=== PATIENT | male | born 1945 | race Caucasian/White ===

== ENCOUNTER 2017-10-14 15:04 | Emergency (ER) | payer MEDICARE, SELFPAY ==
[2017-10-14 15:11] VITALS: BP 143/56; PULSE 69; PULSE 70; RESP 20; TEMP 36.4; O2SAT 94; O2SAT 95; BMI 23.4
--- NOTE | 2017-10-14 15:27 | EKG12_ITS ---
Test Reason : Blood Pressure : / mmHG Vent. Rate : 071 BPM Atrial Rate : 071 BPM P-R Int : 140 ms QRS Dur : 102 ms QT Int : 418 ms P-R-T Axes : 034 070 063 degrees QTc Int : 454 ms Sinus rhythm with occasional Premature ventricular complexes Voltage criteria for left ventricular hypertrophy Abnormal ECG Confirmed by AUBRIE SETH, KRISTIAN ([id number]), editor dictionary CHAY STRAUSS ([id number]) on 10/16/2017 1:13:54 PM Referred By: JAROD Confirmed By:KRISTIAN ALFRED MD
--- NOTE | 2017-10-14 15:29 | RAD_ITS ---
STUDY: X-RAY CHEST REASON FOR EXAM: Male, 71 years old. Dizziness and short of breath TECHNIQUE: Single AP portable view of the chest. COMPARISON: None. FINDINGS: There is hyperinflation of the lungs consistent with chronic obstructive lung disease (COPD). There is a 5 cm spiculated mass in the right upper lobe consistent with neoplasm. CT with contrast is recommended. No no other pulmonary opacities. No effusions. There is no demonstrated pleural abnormality. Normal size heart. Normal mediastinum and alan. Normal visualized pulmonary arteries. Normal visualized aortic arch and descending thoracic aorta. Normal visualized thoracic spine. Normal visualized ribs, clavicles, and shoulders. There is no demonstrated abnormality of the visualized soft tissue structures of the upper abdomen. RAD/Chest 1 View (Portable) IMPRESSION: There is a 5 cm spiculated mass in the right upper lobe consistent with neoplasm. CT with contrast is recommended. Electronically Signed: Norm Monzon MD at 16:26 EDT , Service support ,
--- NOTE | 2017-10-14 15:37 | NURSING ---
NO LW OR POA
--- NOTE | 2017-10-14 15:44 | ED.VISSUMM ---
- ER Visit Summary Date of Service: 10/14/17 Chief Complaint: Near syncope History of Present Illness: The patient is a 71 M who presents after near syncopal episode. He is a daily drinker. He does admit to drinking couple of beers today. He was standing outside at a hot grill and it is also hot outside today. He began to feel lightheaded and dizzy. He felt he needed to sit down. He sat down at the picnic table and the next thing he knew there were multiple people surrounding him. He states that he never actually lost consciousness. He remembers the event and fall. EMS reports that he had another near syncopal episode while in the ambulance. He denies any associated symptoms such as fevers chest pain shortness of breath vomiting diarrhea. No recent illness. He denies any pain. Physical Examination: Afebrile vitals unremarkable Moist mucous membranes Heart regular rate and rhythm Lungs are clear Abdomen soft and nontender 2+ symmetric radial pulses Extremities nontender without edema Alert no focal neurological deficits Test Results: EKG shows sinus rhythm at a rate of 71 with a single PVC. CBC BMP normal. Troponin negative. Orthostatic vital signs negative. Chest x-ray showed a 5 cm right upper lobe spiculated mass. CTA of the chest was obtained. No pulmonary embolism. There is a 5.1 cm malignant mass in the right upper right hilar lymphadenopathy concerning for bronchogenic carcinoma. Emergency Department Course and Treatment: I do believe the patient's near syncope was likely related to heat exhaustion. He states that this began while standing next to a very hot grill. He states currently he is completely asymptomatic. This orthostatic vital signs and labs were all normal. I explained to the patient the findings on CT chest that are most consistent with malignancy. I spoke to , pulmonology and patient will follow-up as an outpatient. He understands to return for new or worsening symptoms and was instructed on specific signs and symptoms to monitor for. Patient discharged home in good condition. Treatment Plan: [] Disposition: Discharge Impression: Near syncope Heat exhaustion Lung mass This note was generated with [employer] dictation software. It may contain incorrect words, spelling, and punctuation that were not noted in review of the chart prior to signing ED Disposition - Plan for ED Patient: Chief Complaint: Syncope Referrals: Maryse Lima NP-C [Primary Care Provider] -
[2017-10-14 15:48] LABS: Absolute Lymphocyte Count 1.34 X10^3/ul (0.83-4.51); Basophil# 0.04 X10^3/uL; Basophil% 0.5 % (0-1); Eosinophils% 5.2 % (0-5); Hematocrit 45.5 % (40-54); Hemoglobin 15.5 g/dl (13.0-16.5); Lymphocyte # 1.34 X10^3/ul (4.0); Lymphocyte % 17.5 % (19-41); Mean Corp Hgb Conc 34.1 g/gl (32-36); Mean Corpuscular Hgb 31.7 pg (27.0-32.0); Mean Platelet Vol. 9.4 fl (6.2-12.0); Monocyte# 0.85 X10^3/uL; Monocyte% 11.1 % (0-10); Neutrophil # 5.01 X10^3/uL (2.7-7.7); Neutrophil % 65.6 % (47-70); Platelet Count 193 K/mm3 (150-450); RBC Distribution Width CV 14.8 % (11.6-14.6); RBC Distribution Width SD 49.3 fl (35.1-43.9); Red Blood Count 4.89 M/mm3 (4.6-6.2); White Blood Count 7.7 K/mm3 (4.4-11.0)
[2017-10-14 15:49] LABS: POSITIVE COUNT NO; POSITIVE DIFFERENTIAL NO; POSITIVE MORPHOLOGY NO
[2017-10-14 15:57] LABS: Anion Gap 6 (5-15); BUN 8 mg/dL (7-18); Calcium,Total 9.2 mg/dL (8.5-10.1); Chloride 103 mmol/L (98-107); Creatinine, Serum 1.15 mg/dL (0.70-1.30); EST Glomerular Filtration Rate 67 mL/min (>60); Est Glom Filt Rate - Afr Amer 80 mL/min (>60); Estimated Creatinine Clearance 51.25 ml/min; Glucose 118 mg/dL (74-106); Potassium 3.6 mmol/L (3.5-5.1); Sodium Level 137 mmol/L (136-145)
[2017-10-14 16:06] VITALS: BP 146/58; BP 151/71; BP 153/72; PULSE 77; PULSE 81; PULSE 82
[2017-10-14] MEDS: 0.9% Normal Saline 1,000 ML 1000 ML IV (16:07)
--- NOTE | 2017-10-14 16:33 | CT_ITS ---
STUDY: CTA CHEST REASON FOR EXAM: Male, 71 years old. Near syncope. Previous vascular surgery. RADIATION DOSAGE (If Supplied By Facility): CTDIvol = ( 10.61 ) mGy, DLP = ( 533.24 ) mGycm TECHNIQUE: The examination was performed with the intravenous administration of 75 ml of Isovue 370 contrast material. Post-processing of the angiographic images was performed, with multiplanar reformation and 3D reconstruction. Individualized dose optimization techniques were used for this CT. COMPARISON: None. FINDINGS: This examination confirms a malignant appearing mass in the right upper lobe, abutting the upper aspect of the right major fissure and extensively involving the lateral pleural. Greatest dimension is approximately 5.1 cm. This is very likely bronchogenic carcinoma. Biopsy is recommended. There may be some associated right hilar adenopathy. There is underlying COPD with hyperexpansion of the lungs and some diffuse interstitial thickening. No other focal pulmonary opacities. No effusions. Normal enhancement of the main pulmonary artery and right and left pulmonary arteries. Normal enhancement of the bilateral peripheral pulmonary arteries. There is no demonstrated pulmonary embolism. There is atherosclerotic calcification of the aortic arch with tortuosity. There is no demonstrated aortic dissection. Normal heart and pericardium. There are calcifications of the coronary arteries. Normal mediastinum. Normal hilar regions. Normal visualized trachea and bronchi. Normal chest wall structures. A vascular graft is seen through the subcutaneous tissues of the right chest wall, extending from the right thoracic inlet and subclavian artery as far as the lowermost image seen. There are degenerative changes of thoracic spine. Normal gross acute abnormality in the visualized upper abdomen. CT/CTA Chest W/WO Contrast IMPRESSION: 5.1 cm malignant mass of the right upper lobe. Biopsy recommended. Possible right hilar adenopathy. COPD. No evidence for PE. Electronically Signed: Norm Monzon MD at 17:40 EDT , Service support ,
[2017-10-14 16:41] VITALS: BP 156/61; PULSE 85; RESP 17; O2SAT 96
--- NOTE | 2017-10-14 18:07 | ED.DEP ---
ED Disposition - Plan for ED Patient: Chief Complaint: Syncope Instructions: ED Near Syncope Unkn, ED Exhaustion Heat, ED Nodule Solitary Pulmonary Referrals: Maryse Lima, JESUS-C [Primary Care Provider] - Kaveh Brown DO [STAFF PHYSICIAN] -
[2017-10-14 18:26] VITALS: BP 154/68; PULSE 89; RESP 17; O2SAT 95
== END 2017-10-14 18:27 | disposition home or self-care (01) ==
PROVIDERS: Emergency Provider Emergency Medicine; Family Provider Nurse Practitioner Family; PCP Nurse Practitioner Family
DX: R55 Syncope and collapse (principal); T67.5XXA Heat exhaustion, unspecified, initial encounter; X30.XXXA Exposure to excessive natural heat, initial encounter; Y93.9 Activity, unspecified; Y92.9 Unspecified place or not applicable; R91.8 Other nonspecific abnormal finding of lung field; I49.3 Ventricular premature depolarization; I10 Essential (primary) hypertension; D45 Polycythemia vera; Z86.718 Personal history of other venous thrombosis and embolism; Z87.19 Personal history of other diseases of the digestive system; F10.99 Alcohol use, unspecified with unspecified alcohol-induced disorder; Z79.82 Long term (current) use of aspirin; Z79.899 Other long term (current) drug therapy; Z72.0 Tobacco use
CPT/HCPCS: 71045; 71275; 80048; 80320; 84484; 85025; 93005; 96360; 99285; Q9967; A4216; G0480

== ENCOUNTER → 2017-10-31 07:54 | Outpatient (CLI) | payer MEDICARE, OTHER, SELFPAY ==
--- NOTE | 2017-10-31 15:12 | PFTCOMP ---
COMPLETE PULMONARY FUNCTION TEST INTERPRETATION Brief HPI: Patient is a 71 year old male, currently under the care of myself, who presents to [facility] for complete pulmonary function tests secondary to diagnosis of dyspnea. Respiratory therapist reports good effort and reproducible results. Interpretation: Forced expiration spirometry shows a moderately-severe large airways obstructive ventilatory defect with an FEV1 of 55% predicted. There is no significant bronchodilator response by ATS criteria. Spirograms are of good quality and plateau slowly, indicating slowly emptying areas of the lungs. The respiratory flow volume loop shows decreased expiratory flow rates at all lung volumes consistent with airway obstruction. Lung volumes by body plethysmography show a normal total lung capacity at 6.18 L, 117% predicted. FRC and RV are elevated out of proportion. Lung volume measurements are consistent with hyperinflation and air-trapping. Diffusion capacity by carbon monoxide is decreased at 61% predicted. The airway resistance is elevated. No previous pulmonary function tests were available for review. Impression: Irreversible moderately severe large airways obstructive ventilatory defect with a symmetric reduction in diffusing capacity and resulting in air trapping with hyperinflation. These findings are consistent with the diagnosis of COPD.
--- NOTE | 2017-10-31 15:15 | PFTCOMP_ITS ---
COMPLETE PULMONARY FUNCTION TEST INTERPRETATION Brief HPI: Patient is a 71 year old male, currently under the care of myself, who presents to [facility] for complete pulmonary function tests secondary to diagnosis of dyspnea. Respiratory therapist reports good effort and reproducible results. Interpretation: Forced expiration spirometry shows a moderately-severe large airways obstructive ventilatory defect with an FEV1 of 55% predicted. There is no significant bronchodilator response by ATS criteria. Spirograms are of good quality and plateau slowly, indicating slowly emptying areas of the lungs. The respiratory flow volume loop shows decreased expiratory flow rates at all lung volumes consistent with airway obstruction. Lung volumes by body plethysmography show a normal total lung capacity at 6.18 L , 117% predicted. FRC and RV are elevated out of proportion. Lung volume measurements are consistent with hyperinflation and air-trapping. Diffusion capacity by carbon monoxide is decreased at 61% predicted. The airway resistance is elevated. No previous pulmonary function tests were available for review. Impression: Irreversible moderately severe large airways obstructive ventilatory defect with a symmetric reduction in diffusing capacity and resulting in air trapping with hyperinflation. These findings are consistent with the diagnosis of COPD.
== END ==
PROVIDERS: Visit Provider Internal Medicine Critical Care Medicine
DX: R06.00 Dyspnea, unspecified (principal)
CPT/HCPCS: 94060; 94726; 94729

== ENCOUNTER → 2017-11-02 08:52 | Outpatient (CLI) | payer MEDICARE, OTHER, SELFPAY ==
[2017-11-02 09:33] VITALS: PULSE 104; PULSE 105; PULSE 106; PULSE 107; PULSE 92; PULSE 95; PULSE 97; O2SAT 92; O2SAT 93; O2SAT 95; O2SAT 96; O2SAT 97; O2SAT 98
--- NOTE | 2017-11-02 11:14 | PCM.PSN.6M ---
PSN 6 Minute Walk Test - 6 Minute Walk Test 6 Minute Walk Test: 6 Minute Walk Test PSN:6-Minute Walk Test Start: 11/02/17 09:32 Freq: Status: Active Protocol: RESP.6MINW Document 11/02/17 09:33 [facility] (Rec: 11/02/17 09:55 [facility] [id number]) 6 Minute Walk Test Date Performed 11/02/17 Time Performed 09:00 Height 5 ft 5 in Weight: 58.967 kg Weight in Pounds 130.[address]: Tony Goodson FIO2 (% Oxygen) 21 Assistive device used: None Pre-test Oxygen Delivery Method Room Air Pulse Ox (%) 98 Pulse Rate (60-100 beats/min) 95 Dyspnea Eron Scale (0-10) 0 1st minute Oxygen Delivery Method Room Air Pulse Ox (%) 96 Pulse Rate (60-100 beats/min) 95 Dyspnea Eron Scale (0-10) 0 2nd minute Oxygen Delivery Method Room Air Pulse Ox (%) 96 Pulse Rate (60-100 beats/min) 97 Dyspnea Eron Scale (0-10) 0 3rd minute Oxygen Delivery Method Room Air Pulse Ox (%) 95 Pulse Rate (60-100 beats/min) 105 H Dyspnea Eron Scale (0-10) 0 4th minute Oxygen Delivery Method Room Air Pulse Ox (%) 96 Pulse Rate (60-100 beats/min) 104 H Dyspnea Eron Scale (0-10) 0 5th minute Oxygen Delivery Method Room Air Pulse Ox (%) 93 Pulse Rate (60-100 beats/min) 107 H Dyspnea Eron Scale (0-10) 0 6th minute Oxygen Delivery Method Room Air Pulse Ox (%) 92 Pulse Rate (60-100 beats/min) 106 H Dyspnea Eron Scale (0-10) 0 Post-test Oxygen Delivery Method Room Air Pulse Ox (%) 97 Pulse Rate (60-100 beats/min) 92 Dyspnea Eron Scale (0-10) 0 Full Laps Walked 16 Partial Lap, Number of Tiles Walked 132 Total Distance Walked (ft) 1076 - Interpretation Interpretation: Patient was able to ambulate 1076 feet over the course of 6 minutes on room air with no assistive devices or breaks. The patient did experience significant desaturation from 90% at baseline to as low as 92% in the 6 minute. Some tachycardia was noted with a peak heart rate of 106 bpm. These findings are consistent with a respiratory limitation exercise tolerance. - Recommendations Recommendations: No supplemental oxygen is indicated at this time.
== END ==
PROVIDERS: Visit Provider Internal Medicine Critical Care Medicine
DX: R06.00 Dyspnea, unspecified (principal)
CPT/HCPCS: 94618

== ENCOUNTER → 2017-11-09 08:51 | Outpatient (CLI) | payer MEDICARE, OTHER, SELFPAY ==
[2017-11-09] VITALS (10 sets, daily range): BP systolic 105–223; BP diastolic 23–75; PULSE 76–88; RESP 17–22; TEMP 36.9; O2SAT 97–99; BMI 21.6
--- NOTE | 2017-11-09 | IMM_PTH ---
PATIENT: JENARO RIVERO Jr. LOC: CT U#:[id number] AGE/SX: 79/M ROOM: RE11/09/[address]: Dr. Tony Goodson MD : 1945 BED: DIS: SPEC #: [id number] RECD: 11/12/17 14:17 STATUS: MARTIN REQ #: [id number] PRINCESS: 11/09/17 00:[address]: Tony Goodson DEPT: IMMUNOHISTOCHEMISTRY RECD BY: Louise Feliciano ENTERED: 11/12/17 14:19 SP TYPE: IMMUNO OTHR DR: Maryse Lima, CUT LACE MACHINE OPERATOR-C [facility] Tissues: Lung, NOS Procedures: RCC (add) NAPSIN A (add) CK20 (add) CK5-6 (add) CK8 (add) HEP PAR (add) PSA (add) TTF1 (add) P40 (add) CK7 (initial) PHYSICIAN & INSTITUTION [place] [id number] SPECIMEN INFORMATION: Tissue Source: Right lung mass Clinical Info: Right lung mass Specimen Number: [id number] CPT code: 74001, 95652 x9 METHODOLOGY: Deparaffinized sections of prefer/formalin-fixed tissue or PAP/DQ stained slides are incubated with monoclonal/polyclonal antibodies/oligonucleotide probes. Localization is made via biotin free immunoperoxidase method. Appropriate controls are performed and reacted as expected. Results on target cell population are indicated in the following table: RESULTS: ANTIBODY / CLONE RESULT CK7 (OV-TL12/30) positive CK8 (32zhbnS65) positive CK20 (KS20.8) negative TTF-1 (8G7G3/1) positive, focal and weak Napsin A (Rabbit Polyclonal) negative HepPar (OCh1E5) negative RCC (PN-15) negative PSA (ER-PR8) negative CK5-6 (D5 & 1684) positive, weak P40 (BC28) negative These tests were developed and their performance characteristics determined by [facility]. They may not have been cleared or approved by the U.S. Food and Drug Administration. The FDA has determined that such clearance or approval is not necessary. INTERPRETATION: Right lung mass, CT-guided biopsy: Non-small cell carcinoma, favor poorly differentiated adenocarcinoma. SJ:ariana 11/13/17 Case has been reviewed in consultation with Dr. Moore who concurs with the above diagnosis. IDC:AM
--- NOTE | 2017-11-09 | ASPIGT_PTH ---
PATIENT: JENARO RIVERO Jr. LOC: AR U#:[id number] AGE/SX: 79/M ROOM: RE11/09/[address]: Dr. Tony Goodson MD : 1945 BED: DIS: SPEC #: [id number] RECD: 11/09/17 11:00 STATUS: MARTIN LALO #: [id number] PRINCESS: 11/09/17 00:[address]: Tony Goodson DEPT: SURGICAL PATHOLOGY RECD BY: Genaro Daugherty ENTERED: 11/09/17 11:41 SP TYPE: ASP RAD OTHR DR: Maryse Lima, WIRE INSULATOR-C [facility] Tissues: Right lung, NOS Procedures: FNA Specimen Adequacy Pap Stain (control) Special Stain Group II Surgery Specimen Level IV Diff Quik Stain (control) Imprint (control) HEADER OPERATION: CT guided right lung biopsy PRE-OP DIAGNOSIS: Lung mass TISSUE SUBMITTED: Right lung mass 20g MICROSCOPIC DIAGNOSIS Right lung mass, CT-guided core biopsy: Non-small cell carcinoma, favor poorly differentiated adenocarcinoma. SJ:ariana 11/12/17 COMMENT The specimen is evaluated at the time of CT by Dr. Moore. Immediate Evaluation (crush prep) = Positive for malignant cells, non-small cell carcinoma. Immunohistochemistry ([id number]) supports the above diagnosis. Molecular studies on the tumor can be performed, please notify the laboratory, if is needed. Most of the fragments of the core biopsy consist of fibroconnective tissue with anthracotic pigment. One fragment shows the presence of tumor. Skeletal muscle is also noted in the specimen and negative for involvement by carcinoma. Case has been reviewed in consultation with Dr. Moore who concurs with the above diagnosis. IDC:AM MICROSCOPIC DESCRIPTION Slides are reviewed. GROSS DESCRIPTION Received in fixative is one container labeled with the patient's name and designated right lung. The specimen consists of multiple irregular and elongated fragments of light guo soft tissue that in aggregate measure 1.7 x 0.2 x <0.1 cm. The specimen is totally submitted in one cassette. Five smears were obtained at the time of biopsy, two stained DQ and three stained pap. / AM:ariana 11/09/17 TC:0 CPT: 66811, 51835
[2017-11-09 10:04] LABS: Partial Thromboplast Time 28.3 Seconds (24.1-36.2)
== END ==
PROVIDERS: Visit Provider Internal Medicine Critical Care Medicine
DX: C34.91 Malignant neoplasm of unspecified part of right bronchus or lung (principal); J44.9 Chronic obstructive pulmonary disease, unspecified; D75.1 Secondary polycythemia; I48.91 Unspecified atrial fibrillation; I51.9 Heart disease, unspecified; I10 Essential (primary) hypertension; K57.90 Diverticulosis of intestine, part unspecified, without perforation or abscess without bleeding; I73.9 Peripheral vascular disease, unspecified; Z87.19 Personal history of other diseases of the digestive system; Z86.718 Personal history of other venous thrombosis and embolism; Z98.890 Other specified postprocedural states; Z79.82 Long term (current) use of aspirin; Z79.899 Other long term (current) drug therapy; F12.90 Cannabis use, unspecified, uncomplicated; Z87.891 Personal history of nicotine dependence
CPT/HCPCS: 32405; 36415; 71046; 77012; 85610; 85730; 88172; 88305; 88307; 88313; 88341; 88342; 99156; J7040; A4216

== ENCOUNTER → 2017-12-07 07:10 | Outpatient (CLI) | payer MEDICARE, SELFPAY ==
--- NOTE | 2017-12-07 07:16 | MRI_ITS ---
STUDY: MRI BRAIN WITH AND WITHOUT CONTRAST REASON FOR EXAM: Male, 72 years old. New lung CA diagnosis, no complaints from patient TECHNIQUE: Standardized multiplanar fat and water weighted pulse sequences were obtained. 7 ml of Gadavist contrast material was administered intravenously for the contrast portion of the examination. COMPARISON: CT July 24, 2008 report only FINDINGS: There is a 4 mm round enhancing focus in the right centrum semiovale which could represent a metastasis. There is no mass effect or midline shift. There are multiple white matter hyperintensities, distributed throughout the deep white matter tracts of the cerebral hemispheres, consistent with moderate chronic white matter ischemic changes. Normal bilateral basal ganglia. Normal thalami. There is no extra-axial fluid accumulation. Normal flow voids within the major intracranial circulation suggesting patency by spin echo criteria. Normal sella turcica, pituitary gland, infundibular stalk, optic chiasm and hypothalamus. Normal tectal plate and pineal gland. Normal midbrain, esme and medulla. Normal cerebellum. Normal basal cisterns. Normal bilateral temporal bones. Normal bilateral internal auditory canals. No demonstrated orbital abnormality, within the constraints of a routine brain study. There is minimal mucosal thickening of the frontal and ethmoid sinuses.. Normal calvarium and skull base. Normal visualized soft tissue structures. Normal visualized upper cervical spine. MRI/Brain W/WO Contrast IMPRESSION: There is a 4 mm enhancing focus in the right centrum semiovale which could represent a metastasis. There is moderate small vessel ischemic white matter disease. Electronically Signed: Suellen Mi MD at 15:10 EDT , Service support ,
[2017-12-07 07:42] LABS: CREATININE FINGERSTICK 1.1 mg/dL (0.70-1.30); EGFR FINGERSTICK > 60.0000 mL/min (>60)
== END ==
PROVIDERS: Visit Provider Nurse Practitioner Acute Care
DX: C34.91 Malignant neoplasm of unspecified part of right bronchus or lung (principal)
CPT/HCPCS: 70553; A9585

== ENCOUNTER → 2017-12-10 10:17 | Outpatient (CLI) | payer MEDICARE, SELFPAY ==
--- NOTE | 2017-12-10 07:53 | PET_ITS ---
EXAMINATION: FDG PET CT INDICATIONS: A 72-year-old male with reported history of carcinoma of the lung presenting for initial staging examination. COMPARISON EXAMINATION: CT of the chest report dated 10/14/17. INDEX LESION SIZE SUV INTERPRETATION Right upper hemithorax, right upper lobe 38.6 mm x 40.9 mm (frame 185) 13.7 Fulfills quantitative criteria for viable neoplasm NON-INDEX LESION SIZE SUV INTERPRETATION Right thoracic perihilum, right infrahilar region 2.0 (max) Quantitative criteria for viable neoplasm are not fulfilled Left lower pelvic mesentery contiguous to intestinal tract oral contrast 26.7 mm (frame 80) 2.9 May be further investigated with CT of the abdomen and pelvis is soft tissue mass formation is suspected TECHNIQUE: Following the intravenous administration of 15.74 mCi of F-18 deoxyglucose via the left antecubital fossa, multiplanar image acquisitions of the neck, chest, abdomen and pelvis to level of mid thigh, obtained at one hour post radiopharmaceutical administration contemporaneously interpreted with the current CT of the neck, chest, abdomen and pelvis to level of mid thigh, dated 12/10/[address] of the chest report dated 10/14/17 reveal: SERUM GLUCOSE LEVEL: 89 mg/dl. HEIGHT: 65 inches. WEIGHT: 130 lbs. FINDINGS: 1. An increase in glucose metabolism is defined in the right upper hemithorax pulmonary parenchyma, right upper lobe generating a calculated maximum standard uptake value of 13.7. The maximal axial diameter of the parenchymal density-mass on review of CT of the thorax dated 12/10/17 is 38.6 mm (transverse) x 30.9 mm (AP). 2. Mild increased glucose concentration is demonstrated in the right thoracic perihilum, infrahilar regions generating a calculated maximum standard uptake value of 2.0. 3. Normal physiologic distribution of the radiopharmaceutical is apparent in the hepatic (2.7) and splenic parenchyma, both renal units, bladder and visualized intestinal tract. There is uniform distribution of the radiopharmaceutical concentration defined in the visualized cerebellar hemispheres and cerebral cortical structures.? Diffuse intestinal tract activity is noted throughout all four quadrants of the abdominal-pelvic retroperitoneum, mesentery consistent with normal physiologic distribution of the radiopharmaceutical. An increase in glucose metabolism is defined in the left anterior pelvic wall localized to the subcutaneous fat generating a calculated maximum standard uptake value of 2.9. The maximal axial diameter of the corresponding soft tissue density on review of CT of the pelvis dated 12/10/17 is 26.7 mm (transverse). There is prominent glucose metabolism manifest in the descending thoracic aorta. Prominent glucose metabolism appears evident in the lower pelvis, which appears contiguous to intestinal tract with retained oral contrast material. Pertinent CT findings are as follows. CHEST: Atherosclerotic calcification is defined in the thoracic aorta without evidence of dilatation, aneurysm formation. Coronary arterial calcification is observed. Bilateral axillary soft tissue densities demonstrate no evidence of increased glucose metabolism. Mediastinal soft tissue is ametabolic. Emphysematous change is noted in the bilateral upper lung zones. There are no additional parenchymal densities-nodules noted in the right-left hemithorax demonstrating discernible, quantitatively significant enhanced glucose metabolism. ABDOMEN AND PELVIS: Atherosclerotic calcification is defined in the abdominal aorta without evidence of dilatation, aneurysm formation. Abdominal-pelvic arterial calcification is demonstrated. Cortical cyst formation is visualized in the left kidney with a maximal axial diameter of 31.7 mm (transverse). Calcifications are noted in the bilateral renal units. Dystrophic calcification appears evident within the prostate gland without evidence of quantitatively significant enhanced glucose metabolism. SKELETAL: Degenerative changes defined in the cervical, thoracic and lumbar spine demonstrate no evidence for glucose hypermetabolism. PET/PET/CT Tumor Base -Thigh Init IMPRESSION: 1. ABNORMAL EXAMINATION INDICATIVE OF MALIGNANT VIABLE NEOPLASM. 2. Increased glucose concentration defined in the right upper hemithorax pulmonary parenchyma, right upper lobe fulfills quantitative criteria for viable neoplasm. (Luis et al, Annals of Internal Medicine, 138:724, 2003). 3. Prominent intestinal tract distribution of radiopharmaceutical noted in the left lower pelvis contiguous to part to apparent retained oral contrast material likely represents a component of physiologic distribution of the radiopharmaceutical and potential reconstruction artifact. (Christa et al, Annal of Nuclear Medicine 19:101, 2005). If intraluminal soft tissue mass formation is a diagnostic consideration, correlation with CT of the abdomen and pelvis with intravenous is recommended. (Tony et al, Journal of Nuclear Medicine, 30:Y662, 2003). 4. Mild enhanced glucose concentration observed in the right thoracic perihilum and infrahilar regions does not fulfill quantitative criteria for viable neoplasm. 5. Facilitated FDG uptake demonstrated in the left anterior pelvic wall may represent activated leukocytes associated with a soft tissue inflammatory process. Clinical examination is recommended. 6. The increase in radiopharmaceutical concentration noted in the descending thoracic aorta is most consistent with activated leukocytes associated with atherosclerotic plaque formation. (Jaziel adamson al, Clinical Nuclear Medicine 29:93, 2004). Electronic Signature Rober Richardson D.O. Electronically Signed: Rober Richardson DO at 8:21 EDT Tel , Service support ,
== END ==
PROVIDERS: Visit Provider Nurse Practitioner Acute Care
DX: C34.11 Malignant neoplasm of upper lobe, right bronchus or lung (principal)
CPT/HCPCS: 78815; A9552

== ENCOUNTER 2018-01-08 09:29 | Day surgery (SDC) | payer MEDICARE, SELFPAY ==
[2017-12-17 13:58] VITALS: BMI 22.1
[2018-01-08] VITALS (10 sets, daily range): BP systolic 101–150; BP diastolic 39–63; PULSE 69–82; RESP 16–18; TEMP 36.2–36.7; O2SAT 93–98; BMI 22.4
[2018-01-08] MEDS: Cefazolin 2 GM in 0.9% Normal Saline 100 ML IV (12:27)
[2018-01-08] MEDS: Bupivacaine Mpf 0.5% 30 ML VIAL (12:38)
--- NOTE | 2018-01-08 12:59 | DCINST_ITS ---
Discharge Diet: No Restrictions - Pain medication may cause nausea. You should typically eat light foods as you take your pain medication. Discharge Activity: May Shower - with the bandage in place 1-2 days after surgery. DO NOT SHOWER WHEN YOUR PORT IS ACCESSED. Additional Activity Instructions:: May not drive, work with heavy equipment, or sign legal documents for [address] if you are no longer taking narcotic pain medications. You may drive when you are no longer taking pain medications. Additional Dressing/Incision Instructions:: Leave the bandage on for 2-3 days. When you remove the bandage, leave the steri-strips intact until they fall off. Allergies/Adverse Reactions: Allergies diphenhydramine HCl [From Benadryl] Allergy (Severe, Verified 01/07/18 13:08) Itching PATIENT STATES NOT SURE ABOUT ITCHING ONLY HAPPENED ONCE, NEVER HAD A PROBLEM WITH BENADRYL SINCE latex Allergy (Severe, Verified 01/07/18 13:08) Rash Medications to take at Discharge Lisinopril [Zestril] 20 mg PO DAILY 04/23/15 tiotropium 2.5 mcg-olodaterol 2.5 mcg/actuation mist for inhalation 2 puff INHALATION Q24H #4 g 11/30/17 Aspirin 325 mg PO DAILY@0800 12/17/17 Lidocaine/Prilocaine [Lidocaine-Prilocaine Cream] 30 gm TP DAILY PRN PRN 30 Days #1 cream..g. 12/31/17 Ondansetron HCl [Zofran] 4 mg PO Q8H PRN PRN 10 Days #30 tab 12/31/17 Oxycodone HCl/Acetaminophen [Percocet 5/325] 1 - 2 tab PO Q4H PRN PRN 5 Days #30 tab 01/08/18 The following prescriptions were given: Oxycodone HCl/Acetaminophen [Percocet 5/325] 1 - 2 tab PO Q4H PRN PRN 5 Days #30 tab PRN Reason: Pain Primary Care Physician: Camille Canela [Primary Care Provider] - Test Results: Test results from this visit will be discussed in further detail at your follow- up appointment, if applicable. Please Follow Up With: Jed Reynolds MD - [phone] When: Please plan to follow up in 7 days in the office.
--- NOTE | 2018-01-08 12:59 | RAD_ITS ---
STUDY: X-RAY CHEST REASON FOR EXAM: Male, 72 years old. Post line placement. TECHNIQUE: Single AP portable upright view of the chest. COMPARISON: AP upright inspiratory and expiratory chest x-rays November 09, 2017. FINDINGS: A new chemo port hub is seen overlying the lateral left apex, the catheter passing from the internal jugular vein to the cavoatrial junction. No pneumothorax. Masslike soft tissue density in the right upper lung zone is unchanged. There is mild subsegmental atelectasis in the right base. Nodular-like density projecting over the left apex correlates to exuberant calcification at the first costal cartilage junction. There is no demonstrated pleural abnormality. Normal size heart. Normal mediastinum and alan. Normal visualized pulmonary arteries. There is stable atherosclerotic calcification of the aortic arch. There are stable multilevel degenerative changes of the visualized thoracic spine. Normal visualized ribs, clavicles, and shoulders. Surgical clips again project in the right infraclavicular tissues. There is no demonstrated abnormality of the visualized soft tissue structures of the upper abdomen. RAD/Chest 1 View (Portable) IMPRESSION: 1. New left infraclavicular chemotherapy port in place with catheter tip at the cavoatrial junction. No pneumothorax. 2. Masslike right apical density unchanged. Subsegmental atelectasis seen today in the right lung base. Electronically Signed: Rush Ferguson MD at 14:41 EDT , Service support ,
--- NOTE | 2018-01-08 13:04 | PCM.OPRPT ---
Problem List (1) Encounter for adjustment or management of vascular access device Status: Acute Report of Operation Date of Procedure: 01/08/18 Pre-Operative Diagnosis: z45.2 vascular fitting and adjustment Post-Operative Diagnosis: Same Surgery/Procedure Performed:: Placement of a left IJ PowerPort Type of Anesthesia:: MAC Anesthesiologist: Wilmar Souza Estimated Blood Loss (mL): < 5 cc Description of Procedure: Patient was brought in the operating room. Placed in the supine position. I ultrasound the internal jugular vein on the left side marked the neck and chest appropriately. The neck and chest were then sterilely prepped and draped in the usual fashion. Patient was placed in the headdown position. Seldinger's technique was used to gain access to the internal jugular vein. Guidewire was placed over the needle. The needle was removed. Fluoroscopy was used to confirm proper placement of the wire. Patient was then placed in a neutral position. I injected local onto the chest. An incision was made. Electrocautery was used to create a pocket for the port. Skin marcial was made on the guidewire. Dilator and sheath were placed over the guidewire removing the dilator and guidewire. Single lumen catheter was placed over the sheath. The sheath was removed. Fluoroscopy was used to confirm proper length of the catheter. I tunneled from the pocket created above the collarbone into the neck and brought the catheter down. It flushed and irrigated well. I cut it to the appropriate length. I placed the locking hub on the catheter. The port onto the catheter. I secured the 2 with a locking hub. It was sutured into the pocket created with 2 sutures of 0 Prolene. It flushed and irrigated well. Incisions were closed with subcuticular stitches of 3-0 Vicryl. Dermabond was applied. Access with a Ted needle was then used and the catheter was flushed with 5 cc of hep flush. Sterile dressings were applied. Portable chest x-ray was obtained. The patient tolerated the procedure well.
== END 2018-01-08 15:16 | disposition home or self-care (01) ==
LOC: SDC 09:32 → AC 10:07
PROVIDERS: Referring Provider Surgery; Visit Provider Surgery
PROC: (CPT 36561; principal; 2018-01-08 12:15)
DX: Z45.2 Encounter for adjustment and management of vascular access device (principal); C34.11 Malignant neoplasm of upper lobe, right bronchus or lung; I10 Essential (primary) hypertension; Z86.718 Personal history of other venous thrombosis and embolism; Z79.899 Other long term (current) drug therapy; Z79.82 Long term (current) use of aspirin; Z87.891 Personal history of nicotine dependence; I51.9 Heart disease, unspecified; I73.9 Peripheral vascular disease, unspecified; Z93.3 Colostomy status; D75.1 Secondary polycythemia
CPT/HCPCS: 00532; 36561; 71045; 77001; J7120; C1788

== ENCOUNTER → 2018-05-23 15:21 | Outpatient (CLI) | payer MEDICARE, SELFPAY ==
[2017-12-17 13:58] VITALS: BMI 22.1
[2018-05-02 08:58] VITALS: BMI 21.9
--- NOTE | 2018-05-23 15:25 | CT_ITS ---
STUDY: CT ABDOMEN WITH CONTRAST REASON FOR EXAM: Male, 72 years old. History of lung cancer. History of axillofemoral bypass graft. RADIATION DOSAGE (If Supplied By Facility): CTDIvol = ( 9.48 ) mGy, DLP = ( 416.58 ) mGycm TECHNIQUE: Transaxial images were obtained post I.V. administration of Isovue 250 100CC IV, and oral contrast. Sagittal and coronal images were reconstructed. Individualized dose optimization techniques were used for this CT. COMPARISON: None. FINDINGS: Mild diffuse emphysematous change of the lungs. No confluent airspace infiltrate. No pleural effusion or pneumothorax. The visualized portions of the heart are within normal limits. Normal liver. Gallbladder is contracted. No biliary duct dilatation. Normal spleen. Normal pancreas. 1.8 cm right adrenal gland nodule, unchanged in size and appearance compared to prior imaging. There is a hypoattenuated lesion within the left kidney measuring near water density. Multiple calcific densities are seen throughout the renal alan which appear to be of vascular origin. There is no hydronephrosis. Normal visualized bilateral ureters. Normal visualized stomach. Normal visualized small bowel loops. Normal visualized colonic loops. Left lower quadrant colostomy. The appendix is contracted. Moderate atherosclerotic calcification of the abdominal vasculature. Complete occlusion of the abdominal aorta Patent right axillofemoral bypass graft coursing through the subcutaneous tissues of the right lateral chest wall. Normal inferior vena cava. Normal retroperitoneum. Normal abdominal wall. Normal osseous structures. CT/Abdomen WITH IV Contrast IMPRESSION: 1. Patent right axillofemoral bypass graft. 2. 3 left renal cyst. 3. 4.8 cm right adrenal gland nodule 4. Mild emphysematous change at the lung bases Electronically Signed: Refugio Darden MD at 4:25 EST Tel , Service support ,
--- NOTE | 2018-05-23 15:25 | CT_ITS ---
STUDY: CT CHEST/THORAX WITH CONTRAST REASON FOR EXAM: Male, 72 years old. Follow-up non-small cell lung cancer. RADIATION DOSAGE (If Supplied By Facility): CTDIvol = ( 9.48 ) mGy, DLP = ( 416.58 ) mGycm TECHNIQUE: Transaxial imaging was performed following intravenous administration of Isovue 300 100CC IV. Multiplanar coronal and sagittal images were reformatted. Individualized dose optimization techniques were used for this CT. COMPARISON: Portable AP upright chest x-ray January 08, 2018; PET/CT December 10, 2017; CTA chest October 14, 2017 FINDINGS: Spiculated 3.25 x 2.2 x 2.4 cm posterolateral right upper lobe mass is decreased in size from September 2017, but remains inseparable from the superolateral margin of the oblique pleural fissure as well as thickening of the nearby posterolateral pleural surface. Centrilobular emphysematous changes again predominate in the upper lung zones. The lungs are otherwise clear. There is no demonstrated pleural effusion. The heart size is normal, but there is a sense of left ventricular hypertrophy. Normal pericardium. There are calcifications of the coronary arteries. There are stable nonspecific lymph nodes along the lateral aorticopulmonary window and in the precarinal tissues. No new demonstrated adenopathy. Normal enhanced pulmonary arteries. There is stable atherosclerotic calcification of the ascending aorta, the aortic arch, the proximal brachiocephalic arteries, and descending thoracic aorta. There are stable degenerative changes of the visualized spine, including multilevel bridging/near bridging right anterolateral endplate osteophytes T7-T10. There is marginal calcification along a small posterior central disc protrusion at T7-8. There is a patent right axillary to distant arterial bypass in the tissues of the right lateral chest wall. There is patchy enhancement in the periphery of the liver, with a vaguely nodular appearance on series 2 images 101, 112, and 114. There is stable enlargement of the right adrenal gland and borderline fullness on the left. Stable well-defined 3.4 x 3.35 x 3.4 cm cortical cyst in the upper pole of the left kidney. CT/Chest WITH Contrast IMPRESSION: 1. Decreased size of spiculated 3.25 cm posterolateral right upper lobe mass consistent with malignancy. This remains inseparable from the adjacent oblique pleural fissure and thickening of the posterolateral pleural surface. 2. Centrilobular emphysematous changes again seen in the upper lung zones. 3. Atherosclerotic vascular calcifications present. Patent right axillary to distant arterial bypass in the soft tissues of the right chest wall. 4. There is a sense of left ventricular hypertrophy, although the overall heart size is normal. 5. No new adenopathy or pleural effusion. 6. Patchy contrast enhancement in the periphery of the liver, which may be within normal limits. One might consider characterization with ultrasound, MRI, or repeat PET scan to exclude other pathology. 7. Stable enlarged right adrenal gland and vague fullness of the left adrenal. Electronically Signed: Rush Ferguson MD at 16:44 EST , Service support ,
== END ==
PROVIDERS: Family Provider Nurse Practitioner Family; PCP Nurse Practitioner Family; Referring Provider Internal Medicine Hematology & Oncology; Visit Provider Internal Medicine Hematology & Oncology
DX: C34.11 Malignant neoplasm of upper lobe, right bronchus or lung (principal)
CPT/HCPCS: 71260; 74160; Q9967

== ENCOUNTER → 2018-12-03 08:30 | Outpatient (CLI) | payer MEDICARE, SELFPAY ==
[2017-12-17 13:58] VITALS: BMI 22.1
[2018-11-28 13:14] VITALS: BMI 19.5
[2018-12-02 13:52] VITALS: BMI 19.5
--- NOTE | 2018-12-03 08:34 | CT_ITS ---
STUDY: CT ABDOMEN WITH CONTRAST REASON FOR EXAM: Male, 73 years old. Lung cancer. Weight loss. Colostomy. RADIATION DOSAGE (If Supplied By Facility): CTDIvol = ( 8.69 ) mGy, DLP = ( 608.51 ) mGycm TECHNIQUE: Transaxial images were obtained post I.V. administration of 100 IV Isovue 300, and without oral contrast. Sagittal and coronal images were reconstructed. Individualized dose optimization techniques were used for this CT. COMPARISON: CT of the chest, December 03, 2018. PET/CT scan, August 26, 2018. CT of the abdomen and pelvis, May 23, 2018. FINDINGS: The visualized lung bases are unremarkable. The visualized portions of the heart are within normal limits. Normal liver. The gallbladder is contracted. There is no biliary ductal dilatation. Normal spleen. Normal pancreas. There is symmetric enlargement of the adrenal glands suggesting adrenal hyperplasia. Multiple nonobstructive right renal calculi. The largest measures 6 mm is seen in the mid kidney. There is a 3 cm cyst in the upper pole of the left kidney. There are multiple nonobstructing renal calculi. The largest, in the lower pole measures 3 mm in diameter. There are vascular calcifications both alan. There is no hydronephrosis. Normal visualized stomach. Normal visualized small intestine. Normal visualized colon. There is a left mid abdominal colostomy. There are surgical clips in the region of the appendix consistent with a prior appendectomy. There is diffuse atherosclerotic calcification of the abdominal aorta with elongation and tortuosity, but without a demonstrated aneurysm. Normal inferior vena cava. Normal retroperitoneum. There is a colostomy in the left upper quadrant. There is a small umbilical hernia of omental fat. There is evidence of a patent right sided axillary femoral bypass graft there is a fluid collection about the graft along the inferior aspect of the chest wall. Normal osseous structures. CT/Abdomen WITH IV Contrast IMPRESSION: 1. Stable left colostomy. 2. Stable renal calculi and left renal cysts. 3. Contracted gallbladder without acute inflammatory change. 4. Right axillary femoral bypass graft. 5. Stable adrenal hyperplasia. 6. No major interval change when compared to the CT of April 2018. Electronically Signed: Noel Barnes DO at 17:29 EDT Tel [phone], Service support ,
--- NOTE | 2018-12-03 08:34 | CT_ITS ---
STUDY: CT CHEST WITH CONTRAST REASON FOR EXAM: Male, 73 years old. Lung cancer. Chemotherapy. RADIATION DOSAGE (If Supplied By Facility): CTDIvol = ( 8.69 ) mGy, DLP = ( 608.51 ) mGycm TECHNIQUE: Transaxial imaging was performed following intravenous administration of 100 IV Isovue 300. Multiplanar coronal and sagittal images were reformatted. Individualized dose optimization techniques were used for this CT. COMPARISON: PET/CT scan, August 26, 2018. CT of the chest, May 17, 2018. CT of the abdomen and pelvis, December 03, 2018. FINDINGS: The lungs are well expanded. There is a pleural-based soft tissue density in the posterior right upper lobe, this measures 3.7 x 2.3 x 1.4 cm in size. There is associated mild pleural thickening. There is stranding extending outward into the posterior right upper lobe extending towards the upper hilum. No other pulmonary mass or infiltrate. There is no demonstrated pleural abnormality. Normal heart and pericardium. There are calcifications of the coronary arteries. Normal mediastinum. Normal hilar regions. Normal enhanced pulmonary arteries. There is atherosclerotic calcification of the aortic arch with tortuosity and elongation of the aortic arch and descending thoracic aorta. There are multi-level degenerative changes of the thoracic spine. There are irregular areas of patchy increased enhancement throughout the liver. There is marked enlargement of the adrenal glands. There is a large cyst in the upper pole of the left kidney. CT/Chest WITH Contrast IMPRESSION: 1. Soft tissue mass in the posterior right upper lobe. This appears stable. 2. No other evidence of intrathoracic abnormality. 3. Focal areas of abnormal enhancement in the liver. These are not seen on the CT the abdomen performed the same day and are thought to be secondary to early enhancement phase. 4. Stable adrenal masses and left renal cysts. Electronically Signed: Noel Barnes DO at 17:09 EDT Tel [phone], Service support ,
== END ==
PROVIDERS: Referring Provider Internal Medicine Hematology & Oncology; Visit Provider Internal Medicine Hematology & Oncology
DX: C34.11 Malignant neoplasm of upper lobe, right bronchus or lung (principal); R63.4 Abnormal weight loss
CPT/HCPCS: 71260; 74160; J7030; Q9967

== ENCOUNTER → 2019-05-29 12:35 | Outpatient (CLI) | payer MEDICARE, SELFPAY ==
[2017-12-17 13:58] VITALS: BMI 22.1
[2019-04-14 14:36] VITALS: BMI 20.6
--- NOTE | 2019-05-29 12:36 | CT_ITS ---
STUDY: CT CHEST/THORAX WITH CONTRAST REASON FOR EXAM: Male, 73 years old. MONITORING LUNG CANCER, HX COLOSTOMY, APPENDECTOMY, FEMORAL BYPASS GRAFT RADIATION DOSAGE (If Supplied By Facility): CTDIvol = ( 10.08 ) mGy, DLP = ( 737.73 ) mGycm TECHNIQUE: Transaxial imaging was performed following intravenous administration of IV 100mL Isovue-300. Multiplanar coronal and sagittal images were reformatted. Individualized dose optimization techniques were used for this CT. COMPARISON: CT chest with IV contrast December 03, 2018 FINDINGS: Left chest wall MediPort again noted, the catheter tip in the superior vena cava. Stable pleural-based mass with spiculated margin in the posterolateral periphery right upper lobe. Mild centrilobular emphysematous changes predominate in the apices. Minor pleural thickening associated with the lung mass also unchanged. Normal heart size and pericardium. There are calcifications of the coronary arteries. Normal mediastinum. Normal hilar regions. Normal enhanced pulmonary arteries. There is calcification in the aortic valve annulus, the valve leaflets, and proximal ascending aorta. There is stable diffuse atherosclerotic calcification of the aortic arch, proximal brachiocephalic arteries, and descending thoracoabdominal aorta. The aorta is occluded just below the takeoff of the renal arteries. There is a patent right subclavian artery to far away bypass passing through the tissues of the right chest and abdominal leo to a point outside the [id number]. There are stable degenerative changes of the thoracic spine with multilevel bridging hypertrophic endplate osteophytes. Well-defined hypodense 3.5 x 3.95 x 3.5 cm cortical cyst in the upper pole of the left kidney is increased in size. There is stable vague fullness of the bilateral adrenal glands without defined nodules. CT/Chest WITH Contrast IMPRESSION: 1. Stable pleural-based mass with spiculated margin in the posterolateral right upper lobe with minor associated pleural thickening. 2. Extensive atherosclerotic vascular calcifications. No demonstrated aortic aneurysm, but the aorta is occluded just below the renal arteries. There is a patent right subclavian artery to far away bypass passing in the tissues of the right chest and abdominal leo. 3. Stable vague fullness of the bilateral adrenal glands without a defined mass. 4. Left chest wall Mediport again seen. 5. 3.95 cm cyst in the upper pole of the left kidney is increased in size. Electronically Signed: Rush Ferguson MD at 10:18 EST , Service support ,
--- NOTE | 2019-05-29 12:36 | CT_ITS ---
STUDY: CT ABDOMEN WITH CONTRAST REASON FOR EXAM: Male, 73 years old. MONITORING LUNG CANCER, HX COLOSTOMY, APPENDECTOMY, FEMORAL BYPASS GRAFT RADIATION DOSAGE (If Supplied By Facility): CTDIvol = ( 10.08 ) mGy, DLP = ( 737.73 ) mGycm TECHNIQUE: Transaxial images were obtained post I.V. administration of IV 100mL Isovue-300, and oral contrast. Sagittal and coronal images were reconstructed. Individualized dose optimization techniques were used for this CT. COMPARISON: 12/03/2018. FINDINGS: Small left basilar nodule measuring approximately 3 mm series 3 image 6. Stable compared to prior. The visualized portions of the heart are within normal limits. Normal liver. The gallbladder is contracted. Normal spleen. Normal pancreas. Similar appearing enlargement/nodularity of the right adrenal gland which may be slightly increased in size compared to the prior examination, previously 2.0 x 1.6 now 2.2 x 1.9. Unremarkable left adrenal gland Multiple nonobstructing small bilateral renal stones. Stable left upper pole cyst. No hydronephrosis or acute process in either kidney. Normal visualized stomach. Normal small intestine. Normal colon. Left lower quadrant colostomy. There is non-visualization of the appendix. There is diffuse atherosclerotic calcification of the abdominal aorta with elongation and tortuosity, but without a demonstrated aneurysm. There is reidentified occlusion of the infrarenal abdominal aorta. Right axillary femoral bypass graft with a similar appearing fluid collection around the graft at the lateral right chest wall. Normal inferior vena cava. Normal retroperitoneum. Partially decompressed bladder. Coarse calcifications within the uterus most likely represent fibroids. Normal abdominal wall. Normal osseous structures. CT/Abdomen WITH IV Contrast IMPRESSION: Interval increase in size of a right adrenal nodule compared to the examination 6 months ago. There is reidentified occlusion of the infrarenal abdominal aorta with bypass graft. Otherwise stable examination. Electronically Signed: Jerod Hsieh, at 17:38 EST Tel , Service support ,
[2019-05-29 12:50] LABS: CREATININE FINGERSTICK 1.1 mg/dL (0.70-1.30)
[2019-05-29] MEDS: 0.9% Saline Lock 10 ML Syringe IV (12:50)
== END ==
PROVIDERS: Family Provider Nurse Practitioner Family; Referring Provider Internal Medicine Hematology & Oncology; Visit Provider Internal Medicine Hematology & Oncology
DX: C34.11 Malignant neoplasm of upper lobe, right bronchus or lung (principal)
CPT/HCPCS: 71260; 74160; Q9967; A4216

== ENCOUNTER 2019-06-21 18:18 | Inpatient (IN) | payer MEDICARE, SELFPAY ==
[2017-12-17 13:58] VITALS: BMI 22.1
[2019-06-05 12:56] VITALS: BMI 20.1
[2019-06-21] VITALS (11 sets, daily range): BP systolic 81–144; BP diastolic 39–91; PULSE 89–100; RESP 15–30; TEMP 36.4–36.6; O2SAT 94–100; BMI 20.7; BMI 20.5
--- NOTE | 2019-06-21 18:40 | RAD_ITS ---
STUDY: X-RAY CHEST REASON FOR EXAM: Male, 73 years old. PT FELL AT HOME, LACERATION TO RIGHT EYE BROW, DENIES LOC. ABDOMINAL PAIN. BEEN TREATED FOR LUNG AND BRAIN CA. TECHNIQUE: Single AP portable view of the chest. COMPARISON: Previous study of 01/08/2018 FINDINGS: bus monitor leads are present. There is a left-sided MediPort with catheter tip projecting over the distal SVC. There is linear fibrosis of the right upper lobe. A previously noted right upper lobe mass has significantly decreased in size in the interval presently measuring approximately 1.5 cm in diameter. There is no demonstrated pleural abnormality. Normal size heart. Normal mediastinum and alan. Normal visualized pulmonary arteries. There are calcified plaques of the aortic arch. There are diffuse degenerative changes of the visualized thoracic spine. Normal visualized ribs, clavicles, and shoulders. There is no demonstrated abnormality of the visualized soft tissue structures of the upper abdomen. RAD/Chest 1 View (Portable) IMPRESSION: 1. Right upper lobe fibrosis. Decrease in size of previously noted right upper lobe mass presently measuring approximately 1.5 cm. 2. Left-sided MediPort with catheter tip projecting over the distal SVC. 3. Calcified plaques of the aortic arch. Electronically Signed: Aaron Hicks MD at 20:24 EDT , Service support ,
--- NOTE | 2019-06-21 18:41 | CT_ITS ---
We are attempting to reach an attending provider to discuss findings. An addendum with communication details will be sent when the communication is complete. STUDY: CT ABDOMEN AND PELVIS WITH CONTRAST REASON FOR EXAM: Male, 73 years old. FALL AT HOME, C/O PAIN ALL OVER, LEFT SIDE ABD PAIN, HAS COLOSTOMY, APPY, FEMORAL BYPASS GRAFT, LUNG AND BRAIN CA CURRENTLY, POWER PORT RADIATION DOSAGE (If Supplied By Facility): CTDIvol = ( 14.12 ) mGy, DLP = ( 654.25 ) mGycm TECHNIQUE: Transaxial images were obtained from the dome of the diaphragm to the symphysis pubis without oral contrast. IV 100mL Isovue-300 was administered. Sagittal and coronal images were reconstructed. Individualized dose optimization techniques were used for this CT. COMPARISON: Previous recent study of 05/29/2019 FINDINGS: The visualized lung bases are unremarkable. The visualized portions of the heart are within normal limits. Normal liver. The gallbladder is contracted. Normal spleen. There is dilatation of the pancreatic duct measuring up to 4 mm. There is a low-attenuation right adrenal nodule measuring 1.6 cm, most likely representing an adenoma. The left adrenal appears normal. There are tiny nonobstructing right renal calculi. There is a stable upper pole cyst of the left kidney measuring 3.6 cm. Normal visualized stomach. Normal small intestine. There is a left pelvic ostomy. The appendix is not seen in accordance with history of appendectomy. There are densely calcified plaques of the abdominal aorta and common iliac arteries. The abdominal aorta is ectatic measuring up to 2.6 cm. There is occlusion of the mid to distal abdominal aorta. Normal inferior vena cava. Normal retroperitoneum. Normal urinary bladder. A right axillary femoral bypass graft is again noted. There appears to be a discontinuity of the graft at the level of the right iliac wing with extravasation of contrast-enhanced blood noted in the anterior right pelvic subcutaneous tissues. The focus of active hemorrhage measures approximately 8.2 x 4.2 x 7.2 cm. There is surrounding soft tissue edema. There are degenerative changes of the visualized thoracolumbar spine. CT/Abdomen/Pelvis W IV Cont ONLY IMPRESSION: Right axillary femoral bypass graft noted. There appears to be disruption of the graft at the level of the right iliac wing with extravasation of enhanced blood into the anterior subcutaneous tissues of the right pelvis measuring approximately 8.2 x 4.2 x 7.2 cm. There is surrounding subcutaneous soft tissue edema. Left pelvic ostomy. Nonobstructing right renal calculi. Stable upper pole cyst of the left kidney measuring 3.6 cm. 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 This was noted previously. 1.6 cm low-attenuation right adrenal focus consistent with a benign adenoma. Electronically Signed: Aaron Hicks MD at 20:19 EDT , Service support ,
--- NOTE | 2019-06-21 18:41 | EKG12_ITS ---
Test Reason : FALL Blood Pressure : / mmHG Vent. Rate : 089 BPM Atrial Rate : 089 BPM P-R Int : 110 ms QRS Dur : 084 ms QT Int : 384 ms P-R-T Axes : 057 070 040 degrees QTc Int : 467 ms Normal sinus rhythm Otherwise normal ECG Confirmed by MAKAYLA SETH, FLIP ([id number]), hop weigher CHAY STRAUSS ([id number]) on 06/23/2019 1:35:12 PM Referred By: BEVERLY Confirmed By:FLIP BENAVIDES MD
--- NOTE | 2019-06-21 18:43 | ED.DCSUM_ITS ---
- ER Visit Summary Date of Service: 06/21/19 Chief Complaint: Follow with forehead laceration and right-sided abdominal pain. History of Present Illness: The patient is a 73 M history of lung CA with brain mets. He had chemo and radiation therapy. States he also has weakness in his left leg most likely from the brain mets. History of renal insufficiency and anemia. MediPort on the left. He states he felt fine today. He was up using his walker. He lost his balance fell hitting his head and his abdomen on the walker. Complaining of right side abdominal pain a laceration to his forehead. He denies any LOC. He denies being on any blood thinners. Said before the fall he felt completely fine. Denies any nausea, vomiting or diarrhea. No dysuria. No fever or chills. No cough or shortness of breath. No chest pain. Physical Examination: Older male lying in bed he is hypotensive with blood pressure 82/46. Afebrile. Pulse ox 95% on room air no signs hypoxia. He is tolerating hypertension well. H EENT exam pupils are reactive eyes motions intact. He has dried blood across his forehead and eyebrows. I will have that cleaned off and see exactly the size of the laceration. Pupils are unreactive light. C-spine nontender. Trachea midline. Lungs clear to auscultation bilaterally. Heart regular rate and rhythm rate about 90 no murmur. Abdomen is soft, sided tenderness. There is no bruising. There may be a hematoma on the right side of the abdomen however. He is a colostomy on the left. With stool and air. Extremities he is moving all of 4. Calves are nontender. Neurologically is awake alert answering questions. Test Results: Showed no acute abnormality read by myself. CT brain showed no acute abnormality. CT C-spine showed degenerative changes but no acute abnormality read by the radiologist reviewed by me. CT abdomen and pelvis showed hemorrhage into his right abdominal wall secondary to a ruptured vascular graft. Patient has a history of axillary bifemoral bypass. EKG shows a sinus rhythm rate 89 no acute signs of ischemia. CBC shows a white count of 17.9. Hemoglobin 8.8. Hematocrit of 28. His last hemoglobin was 10. Chemistries unremarkable normal gap normal creatinine 1.2. Liver enzymes normal. Troponin normal. Lactate 1.9. Femur x-ray x2 no fracture. Emergency Department Course and Treatment: Older gentleman fall with forehead laceration and now abdominal pain. He is also hypotensive. He will need imaging and labs. He is being treated with IV fluids hopefully resuscitate his low blood pressure. Patient was given a second dose of fentanyl for pain. Treatment Plan: I discussed the patient's care with the vascular surgeon occupational health and safety officer for the [facility]. Given the patient's history of lung cancer with brain mets a prognosis of 3 to 6 months, his age, his comorbidities and the ruptured vascular graft the vascular surgeon there did not think he would make it to or through surgery. And even if he did both of those things the complications afterwards would most likely be fatal. I discussed this at length with the patient and his daughter. The patient chose not to have surgery or transfer. He is generally made comfort care. And spent time with his daughter. I spoke to our hospitalist and he was down evaluate the patient for admission. Disposition: Admission Impression: Acute fall Closed head injury Blunt abdominal trauma and pain status post fall. Ruptured vascular graft with large soft tissue hematoma and hemorrhagic shock Hypotension This note was generated with [employer] dictation software. It may contain incorrect words, spelling, and punctuation that were not noted in review of the chart prior to signing ED Disposition - Plan for ED Patient: Referrals: Camille Canela [Primary Care Provider] -
[2019-06-21] MEDS: 0.9% Normal Saline 1,000 ML 1000 ML IV (18:45)
[2019-06-21 18:54] LABS: Absolute Lymphocyte Count 0.74 X10^3/uL (0.83-4.51); Absolute Neutrophil Count 15.1 X10^3/uL (2.0-7.7); Basophil# 0.08 X10^3/uL; Basophil% 0.4 % (0-1); Eosinophil# 0.68 X10^3/uL; Eosinophils% 3.8 % (0-5); Hematocrit 28.2 % (40-54); Hemoglobin 8.8 g/dL (13.0-16.5); Lymphocyte # 0.74 X10^3/ul (4.0); Lymphocyte % 4.1 % (19-41); Mean Corp Hgb Conc 31.2 g/dL (32-36); Mean Corpuscular Volume 89.8 fL (80-94); Mean Platelet Vol. 8.8 fl (6.2-12.0); Monocyte# 1.17 X10^3/uL; Monocyte% 6.6 % (0-10); NRBC Flagged by Analyzer 0 % (0-5); Neutrophil % 84.7 % (47-70); Platelet Count 187 K/mm3 (150-450); RBC Distribution Width CV 17.5 % (11.6-14.6); RBC Distribution Width SD 57.1 fl (35.1-43.9); Red Blood Count 3.14 M/mm3 (4.6-6.2); White Blood Count 17.9 K/mm3 (4.4-11.0)
--- NOTE | 2019-06-21 19:08 | CT_ITS ---
STUDY: CT CERVICAL SPINE WITHOUT CONTRAST REASON FOR EXAM: Male, 73 years old. FALL AT HOME, C/O PAIN ALL OVER, LEFT SIDE ABD PAIN, HAS COLOSTOMY, APPY, FEMORAL BYPASS GRAFT, LUNG AND BRAIN CA CURRENTLY, POWER PORT RADIATION DOSAGE (If Supplied By Facility): CTDIvol = ( 17.46 ) mGy, DLP = ( 376.07 ) mGycm TECHNIQUE: High resolution transaxial imaging was performed without contrast material. Sagittal and coronal images were reconstructed. Individualized dose optimization techniques were used for this CT. COMPARISON: None FINDINGS: Normal craniovertebral junction. Normal anterior atlantoaxial articulation. Normal odontoid process. Normal cervical lordosis. There is diffuse endplate spondylosis of the cervical spine. There is mild flattening and remodeling of C4, 5, and 6. C2-3: Disc spacing is within normal limits. There are hypertrophic degenerative facet changes on the left. There is no central canal stenosis or foraminal narrowing. C3-4: Disc spacing is normal. There are mild degenerative facet changes on the right. There is mild right foraminal narrowing. There is no central canal stenosis. C4-5: Disc spacing is within normal limits. The facets appear normal. There is no central canal stenosis or foraminal narrowing. There is endplate spondylosis. C5-6: Disc spacing is within normal limits. There is moderately severe right foraminal narrowing. The facets are within normal limits. There is no central canal stenosis. C6-7: Disc spacing is within normal limits. There is no central canal stenosis or foraminal narrowing. The facets are within normal limits. C7-T1: There is severe disc space narrowing. There is no central canal stenosis or foraminal narrowing. The facets are within normal limits. There are mild emphysematous changes of the lung apices. A left-sided central venous line is noted. CT/Spine Cervical without Contras IMPRESSION: Multilevel degenerative changes, as described above. There is no cervical fracture or subluxation. Electronically Signed: Aaron Hicks MD at 20:00 EDT , Service support ,
--- NOTE | 2019-06-21 19:08 | CT_ITS ---
STUDY: CT BRAIN WITHOUT CONTRAST REASON FOR EXAM: Male, 73 years old. FALL AT HOME, C/O PAIN ALL OVER, LEFT SIDE ABD PAIN, HAS COLOSTOMY, APPY, FEMORAL BYPASS GRAFT, LUNG AND BRAIN CA CURRENTLY, POWER PORT RADIATION DOSAGE (If Supplied By Facility): CTDIvol = ( 44.99 ) mGy, DLP = ( 796.11 ) mGycm TECHNIQUE: Transaxial CT imaging of the brain was performed without administration of intravenous contrast material. Individualized dose optimization techniques were used for this CT. COMPARISON: Report of previous study of 07/24/2008 FINDINGS: Normal soft tissue structures. Normal calvarium. There is mild cerebral atrophy with widening of the extra-axial spaces and ventricular dilatation. There is low attenuation of the left centrum semiovale suggestive of edema. Normal basal ganglia and thalami. Normal brainstem. Normal cerebellum. There is no intracranial hemorrhage. There are no findings of an acute ischemic infarction. Normal visualized paranasal sinuses. CT/Brain/Head without Contrast IMPRESSION: Chronic involutional changes of the brain. There is low attenuation of the left centrum semiovale suggestive of edema. This may represent evidence of metastatic disease. There is no evidence of mass effect or midline shift. There is no evidence of intracranial hemorrhage or calvarial fracture. Electronically Signed: Aaron Hicks MD at 19:54 EDT , Service support ,
[2019-06-21 19:18] LABS: ALB/GLOB Ratio 1.2 RATIO (0.9-2.4); AST(SGOT) 16 U/L (15-37); Alanine Aminotransfer ALT/SGPT 12 U/L (16-61); Albumin, Serum 3.4 g/dL (3.2-5.0); Alkaline Phosphatase 81 U/L (45-117); Anion Gap 6 (5-15); BUN 13 mg/dL (7-18); BUN/Creat Ratio 10.3 RATIO (10-20); Calcium,Total 9.1 mg/dL (8.5-10.1); Chloride 108 mmol/L (98-107); Creatinine, Serum 1.26 mg/dL (0.70-1.30); EST Glomerular Filtration Rate 60 mL/min (>60); Est Glom Filt Rate - Afr Amer 72 mL/min (>60); Estimated Creatinine Clearance 41.88 ml/min; Globulin 2.8 g/dL (2.2-4.2); Glucose 159 mg/dL (74-106); Lactic Acid 1.9 mmol/L (0.4-1.9); Potassium 3.7 mmol/L (3.5-5.1); Protein, Total 6.2 g/dL (6.4-8.2); Sodium Level 138 mmol/L (136-145)
--- NOTE | 2019-06-21 19:36 | ED.RN ---
PT ARRIVES TO ED WITH ABRASIONS THROUGHOUT RIGHT FA. PT REPORTS HE OBTANED ABRASIONS FROM FALLING A FEW DAYS AGO. PT REPORTS PAIN TO RIGHT THIGH AND HIP AREA. CLOTHING REMOVED C-COLLAR PLACED ON NECK. DR. PAUL INFORMED.
--- NOTE | 2019-06-21 19:38 | RAD_ITS ---
STUDY: X-RAY - RIGHT FEMUR REASON FOR STUDY: Male, 73 years old. PT FELL AT HOME, LACERATION TO RIGHT EYE BROW, DENIES LOC. ABDOMINAL PAIN. BEEN TREATED FOR LUNG AND BRAIN CA. , COMPLAINT OF RT LEG PAIN TECHNIQUE: 5 view(s) of the femur. COMPARISON: None. FINDINGS: Normal visualized femur. Surgical clips are seen in the right hip area. Vascular calcifications are noted. RAD/Femur Min 2 Views IMPRESSION: No evidence of right femoral fracture or dislocation. Electronically Signed: Aaron Hicks MD at 20:27 EDT , Service support ,
--- NOTE | 2019-06-21 19:44 | ED.RN ---
pt with colostomy in left lower abdomen.
[2019-06-21] MEDS: Ondansetron 4 MG/2 ML Vial IV (19:57)
[2019-06-21] MEDS: fentaNYL 100 MCG/2 ML Ampul 25 MCG IV (19:57)
[2019-06-21] MEDS: 0.9% Normal Saline 1,000 ML 999 ML IV (20:05)
--- NOTE | 2019-06-21 20:08 | ED.RN ---
PER DR. PAUL HAVE SOMEONE APPLY DIRECT PRESSURE TO ABDOMEN. Alejandro MANJARREZ RN AT BEDSIDE HOLD PRESSURE.
[2019-06-21 20:28] LABS: International Normalized Ratio 1.1; Prothrombin Time (Protime)PT. 14.1 SECONDS (11.7-14.9)
--- NOTE | 2019-06-21 20:28 | ED.RN ---
PT VERBALLY CONSENTS TO OBTAINING TRAUMA BLOOD, VERIFIED WITH Alejandro MANJARREZ RN. 1 UNIT TRAUMA BLOOD INITIATED AT 2028 BY Alejandro MANJARREZ RN. BLOOD FLOWING THROUGH LEFT CHEST PORT.
[2019-06-21 20:30] LABS: Partial Thromboplast Time 34.9 Seconds (24.1-36.2)
--- NOTE | 2019-06-21 20:36 | ED.RN ---
PT WITH C/O CONTINUED PAIN, PLACED IN POSITION OF COMFORT. PT SPOKE WITH DAUGHTER VIA CELL PHONE. PT WITH THE FOLLOWING BELONGINGS AT BEDSIDE LABELED WITH PT STICKER: 2 PAIRS SLIPPERS, SWEATSHIRT, PAJAMA PANTS WITH $300 HARPER IN RIGHT POCKET, GLASSES, HAT, CELLPHONE, FACEMASK. PT INFORMED OF AWAITING TRANSPORT. PT [id number].
--- NOTE | 2019-06-21 20:58 | ED.RN ---
DR. PAUL AT BEDSIDE WITH PT, EXPLAINING TO PT CRITICAL CONDITION. 1ST UNIT TRAUMA BLOOD COMPLETED AT 2058. PER DR. PAUL VERBAL ORDER HOLD SECOND UNIT OF TRAUMA BLOOD AT THIS TIME. PT SPEAKING ON PHONE WITH FRIEND.
[2019-06-21] MEDS: fentaNYL 100 MCG/2 ML Ampul 50 MCG IV (21:29)
--- NOTE | 2019-06-21 21:36 | ED.RN ---
DR. PAUL SPEAKS WITH PT. PT ELECTS TO STAY AT [facility] AND BECOME DNRCC. PT SIGNS DNR, DR. PAUL SIGNS DNR. PT AWAITING DAUGHTER TO ARRIVE TO HOSPITAL AND TO BE ADMITTED. PT GIVEN PAIN MEDICATION FOR COMFORT. WILL CONTINUE TO MONITOR.
--- NOTE | 2019-06-21 21:41 | PCM.HP.STD ---
Problem List (1) Rupture of right axillary femoral bypass Status: Acute (2) hematoma of right lower abdomen Status: Acute (3) Acute anemia of blood loss Status: Acute (4) Anemia Status: Chronic (5) Dyspnea Status: Chronic Qualifiers: (6) Stage 2 moderate COPD by GOLD classification Status: Acute (7) Tobacco abuse Status: Chronic (8) Cancer of upper lobe of right lung Status: Chronic (9) Brain metastases Status: Chronic (10) Educational circumstance Status: Acute (11) Encounter for adjustment or management of vascular access device Status: Acute (12) bilater lower extremity bypass Status: Chronic (13) History of colostomy Status: Chronic (14) Heart disease Status: Chronic (15) Diverticulitis Status: Chronic (16) Secondary polycythemia Status: Chronic (17) DVT (deep venous thrombosis) Status: Chronic Comment: 2007, post op Was on coumadin [id number] (18) Colostomy in place Status: Chronic Comment: 2007 (19) HTN (hypertension) Status: Chronic (20) Diverticular disease Status: Chronic (21) PVD (peripheral vascular disease) Status: Chronic Comment: bypass 2007 History of Present Illness Date of Admission: 06/21/19 Chief Complaint: Fall and forehead laceration The patient is a 73 year old M with history of lung cancer with brain mets, chemoradiation last 1 about a year ago being followed by Dr. came to ER after he fell down. Patient felt weakness in left leg and then fell down. He was using his walker, lost balance hit his head and abdomen on the walker. Complaining of severe right-sided lower abdominal pain along with laceration of the right forehead; supraorbital margin. Patient also has swelling in the right lower abdomen/pelvis which is tender, increasing in size. Hematoma has increased more than twice since he has been in ER as per RN. Denies loss of consciousness. No nausea, vomiting or diarrhea. No fever or chills. No URI symptoms or flulike symptoms. No chest pain. [] Triage vitals shows hypotension 82/48, heart rate 98 respiratory rate 20 and pulse ox 95% on room air Basic labs shows H&H 8.8/28, leukocytosis 18,000 platelet count [address] abdomen, CT head and CT C-spine were done. CT abdomen and pelvis shows large hematoma in the right pelvic wall and lower abdomen. It reported as disruption of the right axillary femoral bypass graft at the level of right iliac wing with hematoma measuring 8.2 x 4.2 x 7.2 cm size into anterior subcutaneous space of right pelvis. There is surrounding subcutaneous edema. Following this, patient underwent 1 unit of PRBC transfusion and [facility] transfer line was called by ER physician. It was told that patient cannot make to the surgery in view of the emergency nature of surgery, multiple comorbidities, lung cancer with brain mets. Patient also has bilateral lower extremity bypass and colostomy after he was bitten by recluse spider. This is all explained to the patient by ER physician and by me and patient agreed for DNR CC. Patient's daughter is coming to ER from [place]. He also talked to his sister on phone. Past Medical History Past Medical History (Chronic Problems): Chronic Problems (Last Reviewed 06/05/19 @ 12:55 by Jennifer Elliott) Anemia (Chronic) Dyspnea (Chronic) Tobacco abuse (Chronic) Cancer of upper lobe of right lung (Chronic) Brain metastases (Chronic) bilater lower extremity bypass (Chronic) History of colostomy (Chronic) Heart disease (Chronic) Diverticulitis (Chronic) Secondary polycythemia (Chronic) DVT (deep venous thrombosis) (Chronic) 2007, post op Was on coumadin [id number] (Chronic) 2007 HTN (hypertension) (Chronic) Diverticular disease (Chronic) PVD (peripheral vascular disease) (Chronic) bypass 2007 Medical History: Medical History (Last Reviewed 06/05/19 @ 12:55 by Jennifer Elliott) Heart disease (Chronic) I51.9 Diverticulitis (Chronic) K57.92 Secondary polycythemia (Chronic) D75.1 DVT (deep venous thrombosis) (Chronic) I82.409 2007, post op Was on coumadin [id number] (Chronic) Z93.3 2007 HTN (hypertension) (Chronic) I10 Diverticular disease (Chronic) K57.90 PVD (peripheral vascular disease) (Chronic) I73.9 bypass 2007 PORT PLACEMENT 01-08-18 Allergies diphenhydramine HCl [From Benadryl] Adverse Reaction (Severe, Verified 06/21/19 18:18) Itching PATIENT STATES NOT SURE ABOUT ITCHING ONLY HAPPENED ONCE, NEVER HAD A PROBLEM WITH BENADRYL SINCE latex Adverse Reaction (Severe, Verified 06/21/19 18:18) Rash Home Medications: Ambulatory Orders Medication Instructions Recorded Lisinopril [Zestril] 10 mg PO DAILY 04/23/15 albuterol sulfate 90 mcg/actuation 2 puff INHALATION Q4H PRN g 02/04/18 aerosol inhaler Amlodipine Besylate [Norvasc] 2.5 mg PO DAILY 04/11/18 Aspirin [Adult Low Dose Aspirin EC] 81 mg PO DAILY 06/04/18 Levetiracetam [Keppra] 500 mg PO BID 04/14/19 Pantoprazole Sodium [Protonix] 40 mg PO DAILY 04/14/19 Surgical History: Surgical History (Last Reviewed 06/05/19 @ 12:55 by Jennifer Elliott) bilater lower extremity bypass (Chronic) History of colostomy (Chronic) Z98.890 CT guided lung BX 11/09/17 Smoking Status: Current some day smoker Tobacco Use: Cigarettes Review of Systems Constitutional: Reports: Malaise, Weakness, Weight Change HEENT: Reports: Head Aches. Denies: Sinus Congestion, Sinus Drainage Cardiovascular: Denies: Chest Pain, Palpitations Respiratory: Reports: Shortness of Breath, Shortness of breath at rest. Denies: Cough, Sputum production Gastrointestinal: Reports: Abdominal Pain. Denies: Nausea, Vomiting Genitourinary: Reports: - - Patient had Ruby catheter inserted in ER which was removed as patient is DNR comfort care. Musculoskeletal: Reports: Joint Pain. Denies: Joint Tenderness Skin: Denies: Rash, Wounds Neurological: Reports: Balance problems, Incoordination. Denies: Focal weakness, Numbness, Tingling Psychiatric: Reports: Anxiety. Denies: Depression, Homicidal Ideations, Suicidal Ideations Hematologic/ Lymphatic: Denies: Easy Bruising, Easy Bleeding Unable to obtain accurate/complete ROS d/t: Severe pain, mild drowsy, end-of-life care VTE Information - Inpt Only VTE Present on Admission: No VTE Mechan Device Prophylaxis: None VTE Pharm Prophylaxis ordered?: No Reason prophylaxis not ordered:: Medical Contraindication Patient Problems: Active and Suspected Problems (Last Reviewed 06/05/19 @ 12:55 by Jennifer Elliott) Rupture of right axillary femoral bypass (Acute) hematoma of right lower abdomen (Acute) Acute anemia of blood loss (Acute) - Physical Exam Vitals/I&O's: Vital Signs Temp Pulse Resp BP Pulse Ox 97.8 F 99 27 H 117/72 100 06/21/19 20:47 06/21/19 21:02 06/21/19 21:02 06/21/19 21:02 06/21/19 21:02 Oxygen Flow Rate (L/min) 2 Oxygen Delivery Method Nasal Cannula Weight: 125 lb 0.034 oz Body Mass Index (BMI) 20.7 Intake and Output for Last 24 Hours 06/19/19 06/20/19 06/21/19 23:59 23:59 23:59 Intake Total 1999 Balance 1999 General: Oriented x3, Cooperative, Lethargic HEENT: Atraumatic, PERRLA, EOMI, Normocephalic, - - Laceration over right supraorbital margin. Oral: Dry Mucosa Neck: Supple, No JVD, Negative Carotid Bruits Lungs: No rhonchi, No wheeze, No rales, Diminished, - - Respiratory rate 20/min Cardiovascular: Regular Rhythm, Normal S1, Normal S2, No murmurs, - - Muffled heart sound. Blood pressure is 83/39, heart rate 96/min Abdomen: Bowel Sounds Present, Soft, - - Tenderness present over large hematoma over right lower abdominal pelvic wall. Increasing in size. Colostomy present on the left side. Colostomy bag is full with the stool in the air. Extremities: No edema, - Skin: No rashes, Ulcer/ Wound - As described over right forehead Musculoskeletal: Arthritic Changes, Muscle Wasting Neurological: Cranial nerves II-XII grossly intact, Deep Tendon Reflexes 2+/4 and Symmetrical, Neuro grossly intact Psych/Mental Status: Normal Affect, Appropriate Laboratory Results 06/21/19 18:45: WBC 17.9 H, RBC 3.14 L, Hgb 8.8 L, Hct 28.2 L, MCV 89.8, MCH 28.0, MCHC 31.2 L, RDW Std Deviation 57.1 H, RDW Coeff of Laurita 17.5 H, Plt Count 187, MPV 8.8, Immature Gran % (Auto) 0.400, Neut % (Auto) 84.7 H, Lymph % (Auto) 4.1 L, [place] % (Auto) 6.6, Eos % (Auto) 3.8, Baso % (Auto) 0.4, Absolute Neuts (auto) 15.1 H, Absolute Lymphs (auto) 0.74 L, Nucleated RBC % 0 06/21/19 18:45: Sodium 138, Potassium 3.7, Chloride 108 H, Carbon Dioxide 24.0, Anion Gap 6, BUN 13, Creatinine 1.26, Estim Creat Clear Calc 41.88, Est GFR (MDRD) Af Amer 72, Est GFR (MDRD) Non-Af 60, BUN/Creatinine Ratio 10.3, Glucose 159 H, Calcium 9.1, Total Bilirubin 0.60, AST 16, ALT 12 L, Alkaline Phosphatase 81, Troponin I < 0.015, Total Protein 6.2 L, Albumin 3.4, Globulin 2.8, Albumin/Globulin Ratio 1.2 06/21/19 18:45: Lactic Acid 1.9 06/21/19 18:45: PT 14.1, INR 1.1, APTT 34.9 Assessment/Plan All Active Problems (Last Reviewed 06/05/19 @ 12:55 by Jennifer Elliott) Rupture of right axillary femoral bypass (Acute) hematoma of right lower abdomen (Acute) Acute anemia of blood loss (Acute) 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 Tabor came to ER after he fell down. Patient felt weakness in left leg and then fell down. Complaining of severe right-sided lower abdominal pain along with laceration of the right forehead; supraorbital margin. CT abdomen, CT head and CT C-spine were done. CT abdomen and pelvis shows large hematoma in the right pelvic wall and lower abdomen. It reported as disruption of the right axillary femoral bypass graft at the level of right iliac wing with hematoma measuring 8.2 x 4.2 x 7.2 cm size into anterior subcutaneous space of right pelvis. There is surrounding subcutaneous edema. Following this, patient underwent 1 unit of PRBC transfusion and [facility] transfer line was called by ER physician. 1. Acute fall resulting into blunt abdominal trauma and head with consequent rupture of right axillary bifemoral graft and large hematoma and hypotension: Patient is being admitted on floor for compassionate care. DNR CC. IV fluid. Patient had 1 unit of PRBC transfusion and 1 more unit to be transfused. Patient agreed for DNR CC after explaining the home clinical course. Patient's daughter is coming to ER from [place]. He also talked to his sister on phone. Pain control with morphine and Dilaudid. 2. Acute anemia of blood loss secondary to hematoma on baseline chronic anemia secondary to cancer: As mentioned above. 3. Hypotension secondary to acute blood loss anemia: Patient understands the fate. Compression and blood transfusion to keep patient alive until her daughter comes. 4. Mild laceration of the right supraorbital margin: No evidence of acute intracranial hemorrhage or fracture. There is evidence of metastatic disease over left centrum semiovale. No evidence of mass-effect or midline shift. 4. 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 COPD and right hilar adenopathy. Patient follows Dr. Tabor, last office visit on 06/05/2019 5. Multiple comorbidities include DVT, hypertension, peripheral vascular disease status post bypass in 2007, diverticular disease, colostomy in 2007 tobacco use and COPD: Multiple comorbidities complicates the present care and expect difficult and delay recovery. Patient understands test. Advance directive/living will: This was discussed at length with patient. As mentioned above, patient understands poor prognosis as [facility] doctor said he will not be able to make for the surgery. Patient selected DNR CC Patient does not want artificial life support including intubation, tube feed, ventilator and/chest compression, CV catheter, vasopressor.. Total time spent in [id number] encounter in discussion of advanced directive 16 minutes. Clinical Impression(s) from Imaging Studies Chest X-Ray 06/21/19 18:40 IMPRESSION: 1. Right upper lobe fibrosis. Decrease in size of previously noted right upper lobe mass presently measuring approximately 1.5 cm. 2. Left-sided MediPort with catheter tip projecting over the distal SVC. 3. Calcified plaques of the aortic arch. Abdomen/Pelvis CT 06/21/19 18:41 IMPRESSION: Right axillary femoral bypass graft noted. There appears to be disruption of the graft at the level of the right iliac wing with extravasation of enhanced blood into the anterior subcutaneous tissues of the right pelvis measuring approximately 8.2 x 4.2 x 7.2 cm. There is surrounding subcutaneous soft tissue edema. Left pelvic ostomy. Nonobstructing right renal calculi. Stable upper pole cyst of the left kidney measuring 3.6 cm. 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 This was noted previously. 1.6 cm low-attenuation right adrenal focus consistent with a benign adenoma. Brain CT 06/21/19 19:08 IMPRESSION: Chronic involutional changes of the brain. There is low attenuation of the left centrum semiovale suggestive of edema. This may represent evidence of metastatic disease. There is no evidence of mass effect or midline shift. There is no evidence of intracranial hemorrhage or calvarial fracture. Cervical Spine CT 06/21/19 19:08 IMPRESSION: Multilevel degenerative changes, as described above. There is no cervical fracture or subluxation. Femur X-Ray 06/21/19 19:38 IMPRESSION: No evidence of right femoral fracture or dislocation. Laboratory Results 06/21/19 18:45: WBC 17.9 H, RBC 3.14 L, Hgb 8.8 L, Hct 28.2 L, MCV 89.8, MCH 28.0, MCHC 31.2 L, RDW Std Deviation 57.1 H, RDW Coeff of Laurita 17.5 H, Plt Count 187, MPV 8.8, Immature Gran % (Auto) 0.400, Neut % (Auto) 84.7 H, Lymph % (Auto) 4.1 L, [place] % (Auto) 6.6, Eos % (Auto) 3.8, Baso % (Auto) 0.4, Absolute Neuts (auto) 15.1 H, Absolute Lymphs (auto) 0.74 L, Nucleated RBC % 0 06/21/19 18:45: Sodium 138, Potassium 3.7, Chloride 108 H, Carbon Dioxide 24.0, Anion Gap 6, BUN 13, Creatinine 1.26, Estim Creat Clear Calc 41.88, Est GFR (MDRD) Af Amer 72, Est GFR (MDRD) Non-Af 60, BUN/Creatinine Ratio 10.3, Glucose 159 H, Calcium 9.1, Total Bilirubin 0.60, AST 16, ALT 12 L, Alkaline Phosphatase 81, Troponin I < 0.015, Total Protein 6.2 L, Albumin 3.4, Globulin 2.8, Albumin/Globulin Ratio 1.2 06/21/19 18:45: Lactic Acid 1.9 06/21/19 18:45: PT 14.1, INR 1.1, APTT 34.9 Inpatient E&M: 23532 Init Hosp L3 Procedures: 95848 Advncd Care Plan 30 Min
[2019-06-21] MEDS: Lactated Ringers 1,000 ML 100 ML IV (23:01)
[2019-06-21] MEDS: HYDROmorphone 1 MG/ML Syringe IV (23:03)
[2019-06-21] MEDS: 0.9% Saline Lock 10 ML Syringe IV (23:36)
[2019-06-22 02:26] VITALS: BP 135/64; PULSE 90; RESP 16; TEMP 36.3; O2SAT 100
[2019-06-22] MEDS: 0.9% Saline Lock 10 ML Syringe IV ×3 (02:43→10:19)
[2019-06-22] MEDS: HYDROmorphone 1 MG/ML Syringe IV ×3 (02:44→10:19)
[2019-06-22 06:01] VITALS: BP 123/57; PULSE 90; RESP 18; TEMP 37; O2SAT 100
[2019-06-22 06:21] LABS: Absolute Lymphocyte Count 0.93 X10^3/uL (0.83-4.51); Absolute Neutrophil Count 7.8 X10^3/uL (2.0-7.7); Basophil# 0.04 X10^3/uL; Basophil% 0.4 % (0-1); Eosinophil# 0.42 X10^3/uL; Eosinophils% 4.1 % (0-5); Hematocrit 24.9 % (40-54); Hemoglobin 7.8 g/dL (13.0-16.5); Lymphocyte # 0.93 X10^3/ul (4.0); Lymphocyte % 9.1 % (19-41); Mean Corp Hgb Conc 31.3 g/dL (32-36); Mean Corpuscular Hgb 28.3 pg (27.0-32.0); Mean Corpuscular Volume 90.2 fL (80-94); Mean Platelet Vol. 9.9 fl (6.2-12.0); Monocyte# 0.98 X10^3/uL; Monocyte% 9.6 % (0-10); NRBC Flagged by Analyzer 0 % (0-5); Neutrophil # 7.84 X10^3/uL (2.7-7.7); Neutrophil % 76.4 % (47-70); Platelet Count 123 K/mm3 (150-450); RBC Distribution Width CV 19.1 % (11.6-14.6); RBC Distribution Width SD 61.9 fl (35.1-43.9); Red Blood Count 2.76 M/mm3 (4.6-6.2); White Blood Count 10.3 K/mm3 (4.4-11.0)
[2019-06-22 07:20] VITALS: O2SAT 96
[2019-06-22] MEDS: Lactated Ringers 1,000 ML 100 ML IV (09:07)
--- NOTE | 2019-06-22 09:23 | DS.PCM_ITS ---
Discharge Date and Diagnosis - Problem List Patient Problems: Active and Suspected Problems (Last Reviewed 06/05/19 @ 12:55 by Jennifer Elliott) Rupture of right axillary femoral bypass (Acute) hematoma of right lower abdomen (Acute) Acute anemia of blood loss (Acute) Date of Admission: 06/21/19 Date of Discharge: 06/22/19 - Primary Discharge Diagnosis Active and Suspected Problems (Last Reviewed 06/05/19 @ 12:55 by Jennifer Elliott) Rupture of right axillary femoral bypass (Acute) hematoma of right lower abdomen (Acute) Acute anemia of blood loss (Acute) - Secondary Discharge Diagnosis Chronic Problems (Last Reviewed 06/05/19 @ 12:55 by Jennifer Elliott) Anemia (Chronic) Dyspnea (Chronic) Tobacco abuse (Chronic) Cancer of upper lobe of right lung (Chronic) Brain metastases (Chronic) bilater lower extremity bypass (Chronic) History of colostomy (Chronic) Heart disease (Chronic) Diverticulitis (Chronic) Secondary polycythemia (Chronic) DVT (deep venous thrombosis) (Chronic) 2007, post op Was on coumadin [id number] (Chronic) 2007 HTN (hypertension) (Chronic) Diverticular disease (Chronic) PVD (peripheral vascular disease) (Chronic) bypass 2007 Hospital Course and Treatment Imaging Results: Diagnostic Data Chest X-Ray 06/21/19 18:40 IMPRESSION: 1. Right upper lobe fibrosis. Decrease in size of previously noted right upper lobe mass presently measuring approximately 1.5 cm. 2. Left-sided MediPort with catheter tip projecting over the distal SVC. 3. Calcified plaques of the aortic arch. Electronically Signed: Aaron Hicks MD at 20:24 EDT , Service support , Abdomen/Pelvis CT 06/21/19 18:41 IMPRESSION: Right axillary femoral bypass graft noted. There appears to be disruption of the graft at the level of the right iliac wing with extravasation of enhanced blood into the anterior subcutaneous tissues of the right pelvis measuring approximately 8.2 x 4.2 x 7.2 cm. There is surrounding subcutaneous soft tissue edema. Left pelvic ostomy. Nonobstructing right renal calculi. Stable upper pole cyst of the left kidney measuring 3.6 cm. 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 This was noted previously. 1.6 cm low-attenuation right adrenal focus consistent with a benign adenoma. Electronically Signed: Aaron Hicks MD at 20:19 EDT , Service support , ADDENDUM: 06/21/192028 IMPRESSION: Right axillary femoral bypass graft noted. There appears to be disruption of the graft at the level of the right iliac wing with extravasation of enhanced blood into the anterior subcutaneous tissues of the right pelvis measuring approximately 8.2 x 4.2 x 7.2 cm. There is surrounding subcutaneous soft tissue edema. Left pelvic ostomy. Nonobstructing right renal calculi. Stable upper pole cyst of the left kidney measuring 3.6 cm. 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 This was noted previously. 1.6 cm low-attenuation right adrenal focus consistent with a benign adenoma. N.B. : The above information has been verbally conveyed by Aaron Hicks MD to Dr. Ector MD, on 06/21/2019 20:22:43 (ET). Electronically Signed: Aaron Hicks MD at 20:19 EDT , Service support , Brain CT 06/21/19 19:08 IMPRESSION: Chronic involutional changes of the brain. There is low attenuation of the left centrum semiovale suggestive of edema. This may represent evidence of metastatic disease. There is no evidence of mass effect or midline shift. There is no evidence of intracranial hemorrhage or calvarial fracture. Electronically Signed: Aaron Hicks MD at 19:54 EDT , Service support , Cervical Spine CT 06/21/19 19:08 IMPRESSION: Multilevel degenerative changes, as described above. There is no cervical fracture or subluxation. Electronically Signed: Aaron Hicks MD at 20:00 EDT , Service support , Femur X-Ray 06/21/19 19:38 IMPRESSION: No evidence of right femoral fracture or dislocation. Electronically Signed: Aaron Hicks MD at 20:27 EDT , Service support , hospice Operations: None Procedures: None Summary of Care Provided: Patient is a 73-year-old male with an extensive past medical history as outlined which includes history of lung cancer with brain mets chemotherapy. He was admitted through the ED on 06/21/2019 after he fell down due to weakness in his left leg. He was using his walker and lost his balance and fell. He hit his head and abdomen on the walker and subsequently complained of severe right-sided lower abdominal pain and also sustained a laceration of the right forehead. He was therefore brought into the ED where he was found to be hypotensive with blood pressure of 82/48 with respiratory rate of 20 he was saturating at 95% on room air. Hemoglobin was 8.8 with platelets of 1 87,000 and white cell count of 18,000. CT of the abdomen and pelvis showed a large hematoma in the right pelvic wall and lower abdomen due to disruption of the right axillary femoral bypass graft at the level of the right iliac wing with a hematoma measuring 8.2 x 4.2 x 7.2 cm. There was also surrounding subcutaneous edema. CT of the brain showed chronic involutional changes of the brain and a low attenuation of the left centrum semiovale suggestive of edema and which may represent evidence of metastatic disease with no evidence of mass shift or midline shift and no evidence of intracranial hemorrhage or calvarial fracture. He was transfused with 1 unit of packed red blood cells and [facility] called for transfer. However in light of patient's extensive comorbidities and lung cancer with mets to the brain as well as the emergency nature of the surgery, per documentation, surgeon from [facility] declined the transfer. Patient then agreed to be DNR CC. Patient was therefore admitted and managed for mechanical fall with large abdominal pelvic hematoma. He was admitted and hospice was consulted for evaluation. Patient was agreeable to hospice care as he did not want any further treatment. Hospice evaluated patient on 06/22/2019 and patient was amenable to transfer to hospice medical facility. Patient was seen and examined prior to discharge. He was very drowsy after being given his pain meds. Pain appeared to be well controlled. Unable to do review of systems o/a of patient's drowsiness. Labs and vitals reviewed. Patient still remains hypotensive with blood pressure of 88/67. Hemoglobin is down to 7.8. Platelets are down to 123. Patient was discharged to a hospice medical facility today. Patient Problems: Active and Suspected Problems (Last Reviewed 06/05/19 @ 12:55 by Jennifer Elliott) Rupture of right axillary femoral bypass (Acute) hematoma of right lower abdomen (Acute) Acute anemia of blood loss (Acute) - Physical Exam Vitals/I&O's: Vital Signs Temp Pulse Resp BP Pulse Ox 98.6 F 90 18 123/57 H 96 06/22/19 06:01 06/22/19 06:01 06/22/19 06:01 06/22/19 06:01 06/22/19 07:20 Oxygen Flow Rate (L/min) 2.5 Oxygen Delivery Method Nasal Cannula Weight: 123 lb 7.342 oz Body Mass Index (BMI) 20.5 Intake and Output for Last 24 Hours 06/20/19 06/21/19 06/22/19 23:59 23:59 23:59 Intake Total 2000 / 2000 1100 / 1100 Output Total 100 / 100 200 / 200 Balance 1900 / 1900 900 / 900 General: Lethargic, - - patient very drowsy HEENT: Atraumatic, PERRLA, EOMI, Normocephalic Oral: Moist Mucosa Neck: Supple, No JVD, Negative Carotid Bruits Lungs: Clear to auscultation, Normal air movement, No rhonchi, No wheeze Cardiovascular: Regular rate, Regular Rhythm, Normal S1, Normal S2, No murmurs Abdomen: Bowel Sounds Present, Soft, Non-Distended, No Hepato-splenomegaly, - - tender soft swelling in the right lower quadrant- due to hematoma Extremities: No clubbing, No cyanosis, No edema, Capillary Refill Less than 3 Seconds Skin: No rashes, No breakdown Musculoskeletal: No Tenderness to Palpation of Joints or Extremities Lymphatic: No Cervical, Supraclavicular, or Inguinal Adenopathy Neurological: - - patient very lethargic and drowsy Laboratory Results 06/21/19 18:45: WBC 17.9 H, RBC 3.14 L, Hgb 8.8 L, Hct 28.2 L, MCV 89.8, MCH 28.0, MCHC 31.2 L, RDW Std Deviation 57.1 H, RDW Coeff of Laurita 17.5 H, Plt Count 187, MPV 8.8, Immature Gran % (Auto) 0.400, Neut % (Auto) 84.7 H, Lymph % (Auto) 4.1 L, [place] % (Auto) 6.6, Eos % (Auto) 3.8, Baso % (Auto) 0.4, Absolute Neuts (auto) 15.1 H, Absolute Lymphs (auto) 0.74 L, Nucleated RBC % 0 06/21/19 18:45: Sodium 138, Potassium 3.7, Chloride 108 H, Carbon Dioxide 24.0, Anion Gap 6, BUN 13, Creatinine 1.26, Estim Creat Clear Calc 41.88, Est GFR (MDRD) Af Amer 72, Est GFR (MDRD) Non-Af 60, BUN/Creatinine Ratio 10.3, Glucose 159 H, Calcium 9.1, Total Bilirubin 0.60, AST 16, ALT 12 L, Alkaline Phosphatase 81, Troponin I < 0.015, Total Protein 6.2 L, Albumin 3.4, Globulin 2.8, Albumin/Globulin Ratio 1.2 06/21/19 18:45: Lactic Acid 1.9 06/21/19 18:45: PT 14.1, INR 1.1, APTT 34.9 06/21/19 23:13: Blood Type A POSITIVE, Antibody Screen NEGATIVE, Crossmatch See Detail 06/22/19 04:55: WBC 10.3, RBC 2.76 L, Hgb 7.8 L, Hct 24.9 L, MCV 90.2, MCH 28.3, MCHC 31.3 L, RDW Std Deviation 61.9 H, RDW Coeff of Laurita 19.1 H, Plt Count 123 L, MPV 9.9, Immature Gran % (Auto) 0.400, Neut % (Auto) 76.4 H, Lymph % (Auto) 9.1 L, [place] % (Auto) 9.6, Eos % (Auto) 4.1, Baso % (Auto) 0.4, Absolute Neuts (auto) 7.8 H, Absolute Lymphs (auto) 0.93, Nucleated RBC % 0 Current Medications Acetaminophen (Tylenol) 650 mg PO Q6H PRN PRN PRN Reason: Pain Score 1-10/Temp > 100.7 F Al Hydroxide/Mg Hydroxide (Mylanta Ii) 30 ml PO Q6H PRN PRN PRN Reason: Gastric Burning Albuterol Sulfate (Ventolin Aerosols) 2.5 mg INHALATION Q2H PRN PRN PRN Reason: Shortness of Breath/Wheezing Dextrose (D50w Syringe) 0 gm IV X1 PRN; Protocol PRN Reason: Hypoglycemia Glucagon () 1 mg IM .X1 PRN PRN Reason: Hypoglycemia Hydromorphone HCl (Dilaudid Inj) 1 mg IV Q4H PRN PRN PRN Reason: Pain Score 6-10/10 Last Admin: 06/22/19 07:00 Dose: 1 mg Documented by: Lactated Ringer's () 1,000 mls @ 100 mls/hr IV .Q10H CAROL Last Admin: 06/22/19 09:07 Dose: 100 mls/hr Documented by: Sodium Chloride () 250 mls @ 15 mls/hr IV .[id number] PRN PRN Reason: Saline Flush Sodium Chloride () 250 mls @ 15 mls/hr IV .[id number] PRN PRN Reason: Additional IVPB Infusion Levetiracetam (Keppra Tablet) 500 mg PO BID [facility] Last Admin: 06/21/19 23:06 Dose: Not Given Documented by: Nitroglycerin (Nitrostat) 0.4 mg SUBLINGUAL Q5M PRN PRN Reason: CARDIAC/CHEST PAIN Oxycodone HCl (Oxyir) 5 mg PO Q4H PRN PRN PRN Reason: Pain Score 4-5/10 Pantoprazole Sodium (Protonix) 40 mg PO DAILY [facility] Prochlorperazine Edisylate (Compazine Iv) 5 mg IV Q4H PRN PRN PRN Reason: Breakthrough nausea/vomiting Promethazine HCl (Phenergan) 25 mg IM Q6H PRN PRN PRN Reason: Breakthrough nausea/vomiting Senna/Docusate Sodium (Senokot-S, Jing-Colace) 2 tablet PO BID PRN PRN PRN Reason: Constipation Sodium Chloride () 10 - 40 ml IV UD PRN PRN Reason: SALINE FLUSH Last Admin: 06/22/19 07:00 Dose: 10 ml Documented by: Discharge Diet: No Restrictions Home Medications: Medications to take at Discharge Lisinopril [Zestril] 10 mg PO DAILY 04/23/15 albuterol sulfate 90 mcg/actuation aerosol inhaler 2 puff INHALATION Q4H PRN g 02/04/18 Amlodipine Besylate [Norvasc] 2.5 mg PO DAILY 04/11/18 Aspirin [Adult Low Dose Aspirin EC] 81 mg PO DAILY 06/04/18 Levetiracetam [Keppra] 500 mg PO BID 04/14/19 Pantoprazole Sodium [Protonix] 40 mg PO DAILY 04/14/19 Primary Care Physician: Camille Canela [Primary Care Provider] - Disposition: Hospice Medical Facility Minutes spent on discharge:: 40 Patient Condition:: Critical Medical Necessity - Tobacco Use Smoking Status: Current some day smoker Tobacco Use: Cigarettes Meaningful Use Info Meaningful Use Diagnoses (Choose all that apply): None applicable Inpatient E&M: 65574 Disch Hosp
[2019-06-22 09:59] VITALS: BP 88/67; PULSE 109; RESP 20; TEMP 37.1; O2SAT 93
== END 2019-06-22 10:37 | disposition hospice, inpatient (51) | DRG 314 ==
LOC: ED 18:51 → PCU 22:27
PROVIDERS: Admitting Provider Internal Medicine; Emergency Provider Emergency Medicine; Visit Provider Student in an Organized Health Care Education/Training Program
DX: T82.838A Hemorrhage due to vascular prosthetic devices, implants and grafts, initial encounter (principal); R57.8 Other shock; C79.31 Secondary malignant neoplasm of brain; D62 Acute posthemorrhagic anemia; C34.11 Malignant neoplasm of upper lobe, right bronchus or lung; S01.81XA Laceration without foreign body of other part of head, initial encounter; W18.30XA Fall on same level, unspecified, initial encounter; Z51.5 Encounter for palliative care; Z66 Do not resuscitate; S30.1XXA Contusion of abdominal wall, initial encounter; I10 Essential (primary) hypertension; I73.9 Peripheral vascular disease, unspecified; Z86.718 Personal history of other venous thrombosis and embolism; Z93.3 Colostomy status
CPT/HCPCS: 36415; 36591; 51702; 70450; 71045; 72125; 73552; 74177; 80053; 83605; 84484; 85025; 85610; 85730; 86644; 86850; 86900; 86901; 86920; 86922; 93005; 99285; J7030; J7120; P9016; A4216; J2405